=== PATIENT | female | born 2000 | race Caucasian/White ===

== ENCOUNTER 2024-04-28 09:28 | Outpatient (CLI) | payer OTHER, SELFPAY ==
[2024-04-28 09:56] VITALS: BP 127/58; PULSE 75
[2024-04-28 10:00] VITALS: BP 130/61; PULSE 79
--- OUTSIDE RECORDS SUMMARY | 2024-04-28 10:34 | XMS_ITS | Clinical Summary ---
Author Organization [facility] Address [address] [place] [address] Care Team Providers Care Boomboat Operator Name Role Phone Unavailable Primary Care Provider Unavailabl e Source Comments [facility],non-owned Affiliates and Associated Physician Practices is amultiple site organization consisting of ambulatory clinics and hospital sitesin [place], [place], [place] and [place]. This disclosure is being madepursuant to the Care Everywhere program and may not contain all information available regarding this patient. Last updated 17.[facility] [employer] Allergies Active Allergy Reactions Criticality Noted Date Comments Penicillins Urticaria Medium 02/24/2024 Medications * Be aware that medications may not be up to date on this document. Alwaysverify current medications with the patient. Medication Sig Dispensed Refills Start Date End Date Status Vit-DSS-Fe Fum-FA ( vitamin with iron) tabletIndications:P regnancy Take 1 (one) tablet by mouth once daily Reasons: Active doxylamine (Unisom) 25 MG tabletIndications:N ausea and/or Vomiting in Take 1 (one) tablet by mouth nightly as needed for Insomnia Reasons: Nausea and Vomiting in Active pyridoxine (Vitamin B-6) 25 MG tabletIndications:N ausea and/or Vomiting in Take 2 (two) tablets by mouth once daily Reasons: Nausea and Vomiting in Active Harriman-3 Fatty Acids (fish oil) 500 MG capsule Take 500 (five hundred) mg by mouth once daily Active promethazine (Phenergan) 25 MG tabletIndications:N ausea and Vomiting Take 1 (one) tablet by mouth every 6 hours as needed for Nausea/Vomiting Reasons: Nausea and Vomiting Active Blood Glucose Monitoring Suppl (OneTouch Verio) w/Device KITIndications:Hypo glycemia Use 1 Each as directed 1 kit 02/26/2024 Active Lancets (ONETOUCH DELICA PLUS 33G EXTRA FINE LANCET)Indications: Hypoglycemia Use 1 Each 4 times daily 150 Each 02/26/2024 Active blood glucose test stripIndications:Hy poglycemia Use 1 (one) strip 4 times daily 150 strip 02/26/2024 Active Alcohol Swabs (SM Alcohol Prep) Use 1 Each 4 times daily 150 Each 02/26/2024 Active aspirin (Aspirin) 81 MG chew tabletIndications:P reeclampsia Take 2 (two) tablets by mouth once daily Reasons: Increased Blood Pressure and Edema During 100 tablet 3 03/23/2024 Active labetalol (Normodyne; Trandate) 100 MG tabletIndications:G estational Hypertension Take 0.5 (one-half) tablet by mouth every 12 hours Reasons: -Induced Hypertension Active Active Problems Problem Noted Date Diagnosed Date Benign essential hypertension, antepartum 2024 Hx of preeclampsia, prior , currently p regnant 04/15/2024 Encounter for anatomic survey 04/15/2024 Estimated Date of Delivery Comme nts Yes 08/30/2024 Based on Ultraso und Encounters Date Type Department Care Team Description 04/15/2024 9:33 AM [facility] - 04/15/2024 11:59 PM [facility] Hospital Encounter [facility] [address] [place] [phone] Nnamdi Humphrey MD Discharge Disposition: Home or Self Care 03/04/2024 Telephone [facility] [address] [place] [phone] Asia Russo RN Update (Divine from [facility] called with update on patient's Cardiology recommendations. /) 02/26/2024 9:08 AM [facility] - 02/26/2024 11:59 PM [facility] Hospital Encounter [facility] [address] [place] [phone] Nnamdi Humphrey MD Discharge Disposition: Home or Self Care 02/26/2024 9:00 AM [facility] - 02/26/2024 9:07 AM [facility] Hospital Encounter [facility] [address] [place] [address] Nnamdi Humphrey MD Discharge Disposition: Home or Self Care 02/03/2024 Telephone [facility] [address] [place] [address] Marina Hamilton Appointment (LM for pt to C/S appt) from Last 3 Months Family History Relation Name Status Comments Brother 1 Alive Brother 2 Alive Father Alive Mother Alive Sister 1 Alive Sister 2 Alive Social History Tobacco Use Types Packs/Day Years Used Date Smoking Tobacco: Never Smokeless Tobacco: Never Tobacco Cessation:Counseling Given: Not Answered Alcohol Use Standard Drinks/Week Comments Not Currently 0 (1 standard drink = 0.6 oz pur e alcohol) Estimated Date of Delivery Comme nts Yes 08/30/2024 Based on Ultraso und Sex and Gender Information Value Date Recorded Sex Assigned at Not on file Gender Identity Not on file Sexual Orientation Not on file Last Filed Vital Signs Vital Sign Reading Time Taken Comments Blood Pressure 117/67 04/15/2024 10:41 AM [facility] Pulse 96 04/15/2024 10:41 AM [facility] Temperature - - Respiratory Rate - - Oxygen Saturation - - Inhaled Oxygen Concentration - - Weight 84.4 kg (186 lb) 04/15/2024 10:41 AM [facility] Height 160 cm (5' 3 ) 02/26/2024 9:45 AM [facility] Body Mass Index 32.95 02/26/2024 9:45 AM [facility] Plan of Treatment Upcoming Encounters Date Type Department Care Team (Late st Contact Info) Description 05/13/2024 9:45 AM CDT Appointment [facility] [address] [place] [address] Health Maintenance Due Date Last Done Comments PAP SMEAR 1998 HPV VACCINE (1 - 3-dose series) 2013 HEPATITIS C SCREENING 01/27/2016 DTAP/TDAP/TD VACCINES (1 - Tdap) 2017 HEPATITIS B VACCINE (1 of 3 - 19+ 3-dose series) 2017 COVID-19 VACCINE (2023-2 5 season) 2023 INFLUENZA VACCINE (#1) 2023 DEPRESSION SCREENING 02/12/2024 ZOSTER VACCINE (1 of 2) 02/01/2048 HIV SCREENING Completed 02/20/2024 HIB VACCINE Aged Out No longer eligi ble based on patient's age to complete this topic MENINGOCOCCAL (Group B) VACC INE SHARED DECISION-MAKING Aged Out No longer eligibl e based on patient's age to complete this topic MENINGOCOCCAL GROUPS A/C/Y/W VACCINE Aged Out No longer eligible b ased on patient's age to complete this topic PNEUMOCOCCAL VACCINE Aged Out No long er eligible based on patient's age to complete this topic Respiratory Syncytial Virus (RSV) Vaccine Pt: or over 60 yrs (No Doses Required) Completed Procedures Procedure Name Priority Date/Time Associated Diagnosis Comments SONOGRAM - COMPLETE Routine 04/15/2024 9 :34 AM [facility] Benign essential hypertension, antepartum (HCC) Hx of preeclampsia, prior , currently (HCC) Encounter for anatomic survey (HCC) 20 weeks gestation of (HCC) SONOGRAM - COMPLETE Routine 02/26/2024 9 :12 AM [facility] Encounter for anatomic survey (HCC) Benign essential hypertension, antepartum (HCC) Hx of preeclampsia, prior , currently (HCC) 13 weeks gestation of (HCC) from Last 3 Months Results * SONOGRAM - COMPLETE (04/15/2024 9:34 AM [facility]) Only the most recent of2 resultswithin the time period is included. Linked Results Indication ======== Anatomy Screen cHTN currently on no meds, Class II obesity History ====== OB History 2. Para 1 [id number] 1. live 2020. Gest. age 39 w + 5 d. Weight 2,771 g. Sex of child: female. Details: , Preeclampsia with HELLP Lab Tests Test Date Result NIPT Low risk, Female; per patient Maternal Assessment Physical Exam Height 157 cm, 5 ft 2 in. Weight 84 kg, 186 lb. Initial weight 88 kg, 193 lb. BMI 34.02 kg/m . Initial BMI 35.30 kg/m . Weight gain -3 kg, -7 lb Method ====== Transabdominal and transvaginal ultrasound. View: Sufficient ========= Foy . Number of fetuses: 1 Dating ====== Date Details Gest. age KELLE LMP 11/15/2023 21 w + 5 d 08/21/2024 Stated KELLE 20 w + 3 d 08/30/2024 U/S 04/15/2024 based upon AC, BPD, Femur, HC 20 w + 3 d 08/30/2024 Assigned dating based on stated KELLE, selected on 02/26/2024 20 w + 3 d 08/30/2024 General Evaluation Cardiac activity present. FHR 141 bpm. Presentation: cephalic Placenta: Placental site: posterior; no previa Umbilical cord: Cord vessels: 3 vessel cord. Insertion site: normal insertion Amniotic fluid: Amount of AF: normal. MVP 4.0 cm Biometry BPD 46.5 mm 20w 0d 34% Hadlock HC 176.2 mm 20w 1d 28% Hadlock Cerebellum tr 21.8 mm 81% [place] Nuchal fold 5.4 mm AC 158.5 mm 21w 0d 62% Hadlock Femur 34.1 mm 20w 5d 52% Hadlock Humerus 32.7 mm 21w 0d 72% Emma HC / AC 1.11 -/- 19% Hadlock Weight Calculation: EFW 375 g 62% Hadlock EFW (lb,oz) 0 lb 13 oz EFW by Hadlock ([id number]) appropriate Growth Overview Exam date GA BPD (mm) HC (mm) AC (mm) FL (mm) HL (mm) EFW (g) 04/15/2024 20w 3d 46.5 34% 176.2 28% 158.5 62% 34.1 52% 32.7 72% 375 62% Anatomy The following structures appear normal: Head / Neck Cranium. Lateral ventricles. Choroid plexus. Midline falx. Cerebellum. Cisterna magna. Thalami. Nuchal fold. Heart / Thorax 4-chamber view. RVOT view. LVOT view. Situs. Aortic arch view. Bicaval view. Ductal arch view. Interventricular septum. Great vessels. Right lung. Left lung. Diaphragm. Abdomen Cord insertion. Stomach. Kidneys. Bladder. Bowel. Genitals. Spine Cervical spine. Thoracic spine. Lumbar spine. Sacral spine. Extremities / Skeleton Arms. Hands. Legs. Feet. The following structures could not be adequately visualized: Head / Neck Cavum septi pellucidi. Face Lips. Profile. Nose. Orbits. Heart / Thorax 3-vessel view. 1-ekxzit-rjwzpyi view. Maternal Structures Cervix reassuring Approach - Transvaginal: Cervical length 3.00 cm Right Ovary Not visualized Left Ovary Not visualized Adnexa's appear normal; No previa Impression ========= Single live intrauterine at 20w 3d size & amniotic fluid volume are normal Transvaginal cervical length is normal 3 cm No malformations were seen within the limitations of ultrasound Follow-up ======== Follow up ultrasound in 4 weeks to complete anatomy screen Coding ====== Procedures [id number]: US Preg Uterus Detailed [id number]: US Preg Uterus Transvaginal [facility] [employer] PACS Anatomical Region Laterality Modality Other 04/15/2024 9:34 AM [facility] R Denis Bruce MD [employer] from Last 3 Months Raya Pritchard Personal/Family Self 2000
--- OUTSIDE RECORDS SUMMARY | 2024-04-28 10:34 | XMS_ITS | Clinical Summary ---
Author Organization [facility] Address [address] [place] [address] Phone Care Team Providers Care Salad Bar Clerk Name Role Phone Alexi Rodriguez MD Primary Care Provider [phone] Allergies Active Allergy Reactions Criticality Noted Date Comments Penicillin G Anaphylaxis 01/29/2024 Medications No known medications Encounters Date Type Department Care Team Description 01/29/2024 6:29 PM MUSIC MINISTRIES DIRECTOR - 01/29/2024 10:10 PM MUSIC MINISTRIES DIRECTOR Emergency [facility] Emergency [address] [place] [address] Veda Nielson APRN, EMISSIONS REPAIR TECHNICIAN Campbell, Tom Griggs MD Dizziness Discharge Disposition: Discharged to home or Selfcare 01/29/2024 Travel from Last 3 Months Social History Tobacco Use Types Packs/Day Years Used Date Smoking Tobacco: Never Assessed Estimated Date of Delivery Comme nts Yes 08/30/2024 Sex and Gender Information Value Date Recorded Sex Assigned at Not on file Legal Sex Female 6:21 PM MUSIC MINISTRIES DIRECTOR Gender Identity Not on file Sexual Orientation Not on file Last Filed Vital Signs Vital Sign Reading Time Taken Comments Blood Pressure 142/66 01/29/2024 10:03 PM MUSIC MINISTRIES DIRECTOR Pulse 81 01/29/2024 10:03 PM MUSIC MINISTRIES DIRECTOR Temperature 36.9 C (98.5 F) 01/29/2024 6:27 PM MUSIC MINISTRIES DIRECTOR Respiratory Rate 18 01/29/2024 10:03 PM MUSIC MINISTRIES DIRECTOR Oxygen Saturation 100% 01/29/2024 10:03 PM MUSIC MINISTRIES DIRECTOR Inhaled Oxygen Concentration - - Weight 85.7 kg (189 lb) 01/29/2024 6:25 PM MUSIC MINISTRIES DIRECTOR Height 160 cm (5' 3 ) 01/29/2024 6:25 PM MUSIC MINISTRIES DIRECTOR Body Mass Index 33.48 01/29/2024 6:25 PM MUSIC MINISTRIES DIRECTOR Plan of Treatment Health Maintenance Due Date Last Done Comments Hepatitis C Virus (HCV) Screening 1998 TdaP Immunization 1998 Human Papillomavirus (HPV) Immunization (1 - 3-dose series) 2013 Hepatitis B Immunization (1 of 3 - 19+ 3-dose series) 2017 Pap Smear 2019 Influenza Immunization (#1) 2023 SARS-COV-2 Immunization ( season) 2023 Meningococcal Immunization (ACWY) Aged Out No longer eligible based on patient's age to complete this topic Pneumococcal Immunization Combined Aged Out No longer eligible based on patient's age to complete this topic Respiratory Syncytial Virus (RSV) Immunization (Adult) (No Doses Required) Completed Rotavirus Immunization Aged Out No lo nger eligible based on patient's age to complete this topic Procedures Procedure Name Priority Date/Time Associated Diagnosis Comments URINALYSIS REFLEX IF INDICATED BY ABNORMAL RESULTS STAT 01/29/2024 8:42 PM MUSIC MINISTRIES DIRECTOR EKG 12 LEAD STAT 01/29/2024 7:54 PM MUSIC MINISTRIES DIRECTOR CBC WITH AUTO DIFFERENTIAL STAT 01/29/2024 7:36 PM MUSIC MINISTRIES DIRECTOR TROPONIN I, HIGH SENSITIVITY (HSTRP) STAT 01/29/2024 7:36 PM MUSIC MINISTRIES DIRECTOR CMP (COMPREHENSIVE METABOLIC PANEL) STAT 01/29/2024 7:36 PM MUSIC MINISTRIES DIRECTOR COMPLETE BLOOD COUNT (CBC) WITH DIFF STAT 01/29/2024 7:36 PM MUSIC MINISTRIES DIRECTOR XR CHEST SINGLE VIEW PORTABLE STAT 01/29/2024 7:55 AM MUSIC MINISTRIES DIRECTOR EKG SCAN 01/29/2024 12:00 AM MUSIC MINISTRIES DIRECTOR RHYTHM STRIP 01/29/2024 12:00 AM MUSIC MINISTRIES DIRECTOR RHYTHM STRIP 01/29/2024 12:00 AM MUSIC MINISTRIES DIRECTOR from Last 3 Months Results * (ABNORMAL) Urinalysis w/ Reflex (01/29/2024 8:42 PM MUSIC MINISTRIES DIRECTOR) SPECIFIC GRAVITY 1.010 1.003 - 1.030 01/29/2024 9:00 PM [facility] URINE PH 7.0 5.0 - 9.0 01/29/2024 9:00 PM [facility] WBC ESTERASE 25 /ul(A) Negative 01/29/2024 9:00 PM [facility] NITRITE Negative Negative 01/29/2024 9:00 PM [facility] PROTEIN, RANDOM URINE 15 mg/dL(A) Negative 01/29/2024 9:00 PM [facility] URINE GLUCOSE, QUAL Negative Negative 01/29/2024 9:00 PM [facility] URINE KETONES Negative Negative 01/29/2024 9:00 PM [facility] UROBILINOGEN Normal Normal mg/dL 01/29/2024 9:00 PM [facility] URINE BLOOD Negative Negative mirella/ul 01/29/2024 9:00 PM [facility] URINALYSIS COLOR Yellow 01/29/20 9:00 PM [facility] URINALYSIS CLARITY Slightly Cloudy 01/29/2024 9:00 PM [facility] WBC (Urine) 0-5 Negative, 0-5 /hpf 01/29/2024 9:00 PM [facility] URINE RBC'S 0-2 Negative, 0-2 /hpf 01/29/2024 9:00 PM [facility] EPITHELIAL CELLS Small amount /lpf 2023 9:00 PM [facility] BACTERIA, URINE Few(A) Negative /hpf 01/29/2024 9:00 PM [facility] Urine URINE SPECIMEN / Unknown Non-Phlebotomy Collection / Unknown 01/29/2024 8:42 PM MUSIC MINISTRIES DIRECTOR 01/29/2024 8:45 PM MUSIC MINISTRIES DIRECTOR us Tom Hightower MD URINE ORDERABLES Fin al Result [facility] [address] [place] [address] * EKG 12 LEAD (01/29/2024 7:54 PM MUSIC MINISTRIES DIRECTOR) Ventricular Rate 68 BPM EXTERNAL EKG Atrial Rate 68 BPM EXTERNAL EKG P-R Interval 176 ms EXTERNAL EKG QRS Duration 68 ms EXTERNAL EKG Q-T Duration 378 ms EXTERNAL EKG QTC CALCULATION 401 ms EXTERNAL EKG P [employer] 14 degrees EXTERNAL EKG R [employer] 35 degrees EXTERNAL EKG T [employer] 48 degrees EXTERNAL EKG 01/29/2024 7:54 PM MUSIC MINISTRIES DIRECTOR Impressions EXTERNAL EKG - 02/03/2024 3:59 PM MUSIC MINISTRIES DIRECTOR Sinus rhythm with marked sinus arrhythmia Septal infarct , age undetermined Abnormal ECG No previous ECGs available Confirmed by Akash Toscano ([id number]) on 02/03/2024 3:59:00 PM Narrative Procedure Note Akash Toscano MD - 02/03/2024 IMPRESSION: Sinus rhythm with marked sinus arrhythmia Septal infarct , age undetermined Abnormal ECG No previous ECGs available Confirmed by Akash Toscano ([id number]) on 02/03/2024 3:59:00 PM Tom Hightower MD IMG ECG ORDERABLES F inal Result Performing Organization Address City[facility] Co de Phone Number EXTERNAL EKG * TROPONIN I, HIGH SENSITIVITY (HSTRP) (01/29/2024 7:36 PM MUSIC MINISTRIES DIRECTOR) TROPONIN I, HIGH SENSITIVITY- JEAN <3 <=14 ng/L 01/29/2024 8:09 PM MUSIC MINISTRIES DIRECTOR [facility] Comment: High-sensitivity troponin I results are reported in ng/L making the result appear to be 1,000 times higher than the contemporary troponin I value which is reported in ng/ml. Results from Jean. Blood Venipuncture / Unknown 01/29/2024 7:36 PM MUSIC MINISTRIES DIRECTOR 01/29/2024 7:44 PM MUSIC MINISTRIES DIRECTOR us Tom Hightower MD CHEMISTRY ORDERABLES Final Result [facility] [address] [place] [address] * (ABNORMAL) CBC with Auto Differential (01/29/2024 7:36 PM MUSIC MINISTRIES DIRECTOR) WBC 12.98(H) 4.00 - 12.00 10(3)/mcL 01/29/2024 7:46 PM MUSIC MINISTRIES DIRECTOR [facility] RBC 4.04 3.80 - 5.30 10(6)/mcL 01/29/2024 7:46 PM MUSIC MINISTRIES DIRECTOR [facility] HEMOGLOBIN (HGB) 13.1 12.0 - 15.8 g/dL 01/29/2024 7:46 PM MUSIC MINISTRIES DIRECTOR [facility] HEMATOCRIT (HCT) 36.9 36.0 - 47.0 % 01/29/2024 7:46 PM MUSIC MINISTRIES DIRECTOR [facility] MCV 91.3 82.0 - 96.0 fL 01/29/2024 7:46 PM MUSIC MINISTRIES DIRECTOR [facility] MCH 32.4 26.0 - 34.0 pg 01/29/2024 7:46 PM MUSIC MINISTRIES DIRECTOR [facility] MCHC 35.5 31.0 - 36.0 g/dL 01/29/2024 7:46 PM MUSIC MINISTRIES DIRECTOR [facility] PLATELET COUNT 326 140 - 440 10(3)/mcL 01/29/2024 7:46 PM MUSIC MINISTRIES DIRECTOR [facility] RDW 12.1 11.8 - 15.5 % 01/29/2024 7:46 PM MUSIC MINISTRIES DIRECTOR [facility] MPV 9.4(L) 9.7 - 12.4 fL 01/29/2024 7:46 PM MUSIC MINISTRIES DIRECTOR [facility] NEUTROPHILS 74.3(H) 47.0 - 73.0 % 01/29/2024 7:46 PM MUSIC MINISTRIES DIRECTOR [facility] LYMPHOCYTES 18.2 18.0 - 42.0 % 01/29/2024 7:46 PM MUSIC MINISTRIES DIRECTOR [facility] MONOCYTES 6.9 4.0 - 12.0 % 01/29/2024 7:46 PM MUSIC MINISTRIES DIRECTOR [facility] EOSINOPHILS 0.2 0.0 - 5.0 % 01/29/2024 7:46 PM MUSIC MINISTRIES DIRECTOR [facility] BASOPHILS 0.4 0.0 - 1.0 % 01/29/2024 7:46 PM MUSIC MINISTRIES DIRECTOR [facility] ABSOLUTE NEUTROPHILS 9.64(H) 1.60 - 7.70 10(3)/[facility] 01/29/2024 7:46 PM MUSIC MINISTRIES DIRECTOR [facility] ABSOLUTE LYMPHOCYTES 2.36 1.30 - 3.20 10(3)/[facility] 01/29/2024 7:46 PM MUSIC MINISTRIES DIRECTOR [facility] ABSOLUTE MONOCYTES 0.90 0.20 - 1.00 10(3)/[facility] 01/29/2024 7:46 PM [facility] ABSOLUTE EOSINOPHIL 0.03 0.00 - 0.40 10(3)/[facility] 01/29/2024 7:46 PM [facility] ABSOLUTE BASOPHILS 0.05 0.00 - 0.10 10(3)/[facility] 01/29/2024 7:46 PM [facility] NRBC PER 100 WBC 0 01/29/20 7:46 PM [facility] Blood Venipuncture / Unknown 01/29/2024 7:36 PM MUSIC MINISTRIES DIRECTOR 01/29/2024 7:44 PM MUSIC MINISTRIES DIRECTOR us Tom Hightower MD HEMATOLOGY ORDERABLE S Final Result [facility] [address] [place] [address] * (ABNORMAL) CMP (01/29/2024 7:36 PM MUSIC MINISTRIES DIRECTOR) SODIUM 139 136 - 145 mmol/L 01/29/2024 8:05 PM MUSIC MINISTRIES DIRECTOR [facility] POTASSIUM 3.8 3.5 - 5.1 mmol/L 01/29/2024 8:05 PM [facility] CHLORIDE 109(H) 98 - 107 mmol/L 01/29/2024 8:05 PM [facility] CO2, VENOUS 22 22 - 30 mmol/L 01/29/2024 8:05 PM [facility] ANION GAP 11.8 <18.0 mmol/L 01/29/2024 8:05 PM [facility] GLUCOSE 84 70 - 99 mg/dL 01/29/2024 8:05 PM [facility] BUN 8 5 - 18 mg/dL 01/29/2024 8:05 PM [facility] CREATININE, BLOOD 0.73 0.60 - 1.00 mg/dL 01/29/2024 8:05 PM [facility] BUN/CREATININE RATIO 11(L) 12 - 20 ratio 01/29/2024 8:05 PM [facility] TOTAL PROTEIN 6.7 6.3 - 8.2 g/dL 01/29/2024 8:05 PM [facility] ALBUMIN 4.2 3.5 - 5.0 g/dL 01/29/2024 8:05 PM [facility] A/G RATIO 1.7 1.0 - 2.2 01/29/2024 8:05 PM [facility] CALCIUM 9.8 8.7 - 10.5 mg/dL 01/29/2024 8:05 PM [facility] T BILI 0.5 0.2 - 1.2 mg/dL 01/29/2024 8:05 PM [facility] SGOT (AST) 14 5 - 34 U/L 01/29/2024 8:05 PM [facility] SGPT (ALT) 17 0 - 55 U/L 01/29/2024 8:05 PM [facility] ALKALINE PHOSPHATASE 46 40 - 150 U/L 01/29/2024 8:05 PM [facility] GFR, ESTIMATED >60 >=60 01/29/2024 8:05 PM MUSIC MINISTRIES DIRECTOR [facility] Comment: Creatinine Clearance is the preferred criteria for selecting drug dose adjustments in renally impaired patients. The GFR is provided as additional pertinent clinical information. GFR is reported in mL/min/1.73 sq m. Calculation based on the Chronic Kidney Disease Epidemiology Collaboration (CKD- EPI) equation refit without adjustment for race. GFR, EST. >60 >=60 024 8:05 PM MUSIC MINISTRIES DIRECTOR [facility] GFR, EST. NONAFRICAN >60 >=60 01/29/2024 8:05 PM MUSIC MINISTRIES DIRECTOR [facility] Blood Venipuncture / Unknown 01/29/2024 7:36 PM MUSIC MINISTRIES DIRECTOR 01/29/2024 7:44 PM MUSIC MINISTRIES DIRECTOR us Tom Hightower MD CHEMISTRY ORDERABLES Final Result [facility] [address] [place] [address] * XR CHEST SINGLE VIEW PORTABLE (01/29/2024 7:55 AM MUSIC MINISTRIES DIRECTOR) Anatomical Region Laterality Modality Chest N/A Computed Radiogr aphy 01/29/2024 8:3 3 PM MUSIC MINISTRIES DIRECTOR Impressions 01/29/2024 8:35 PM MUSIC MINISTRIES DIRECTOR IMPRESSION: No acute cardiopulmonary abnormality. Narrative 01/29/2024 8:35 PM MUSIC MINISTRIES DIRECTOR EXAM DESCRIPTION: XR CHEST SINGLE VIEW PORTABLE REASON FOR STUDY: sternal chest pain, shortness of breath with nausea, dizziness, headache x 2- 3 weeks worse today- HX HTN, abnormal EKGS x 3 years- Currently 10 weeks TECHNIQUE: Frontal radiographic view(s) of the chest. COMPARISON: None available FINDINGS: LUNGS: Mild bibasilar atelectasis. The lungs are otherwise clear. No focal pulmonary parenchymal consolidation, pleural effusion, or pneumothorax. HEART/MEDIASTINUM: Cardiac silhouette is at the upper limits of normal in size. Mediastinal and hilar contours appear normal. LINES/TUBES: None. BONES: No acute osseous abnormality. THIS IS AN ELECTRONICALLY VERIFIED FINAL REPORT 01/29/2024 8:33 PM - Electronically signed by Sarah Forrest M.D. AT: AT Report ID: [id number] Reading Location: [id number] Procedure Note Sarah Forrest MD - 01/29/2024 EXAM DESCRIPTION: XR CHEST SINGLE VIEW PORTABLE REASON FOR STUDY: sternal chest pain, shortness of breath with nausea, dizziness, headache x 2- 3 weeks worse today- HX HTN, abnormal EKGS x 3 years- Currently 10 weeks TECHNIQUE: Frontal radiographic view(s) of the chest. COMPARISON: None available FINDINGS: LUNGS: Mild bibasilar atelectasis. The lungs are otherwise clear. No focal pulmonary parenchymal consolidation, pleural effusion, or pneumothorax. HEART/MEDIASTINUM: Cardiac silhouette is at the upper limits of normal in size. Mediastinal and hilar contours appear normal. LINES/TUBES: None. BONES: No acute osseous abnormality. THIS IS AN ELECTRONICALLY VERIFIED FINAL REPORT 01/29/2024 8:33 PM - Electronically signed by Sarah Forrest M.D. AT: AT Report ID: [id number] Reading Location: [id number] IMPRESSION: No acute cardiopulmonary abnormality. Tom Hightower MD IMG DIAGNOSTIC ORDER AIYANA Final Result * RHYTHM STRIP (01/29/2024 12:00 AM MUSIC MINISTRIES DIRECTOR) Only the most recent of2 resultswithin the time period is included. 01/29/2024 us Provider Scan IMG ECG ORDERABLES Final Result RESULTING AGENCY * EKG SCAN (01/29/2024 12:00 AM MUSIC MINISTRIES DIRECTOR) 01/29/2024 us Provider Scan IMG ECG ORDERABLES Final Result RESULTING AGENCY from Last 3 Months Insurance MEDICAID [place] Care Teams Salad Bar Clerk Relationship Specialty Start Date End Date Alexi Rodriguez MD [address] [place] [phone] PCP - General Family Medicine 01/29/24
== END 2024-04-28 10:15 | disposition home or self-care (01) ==
LOC: ANHOBOP 09:40 → ANHOBPP 09:43
PROVIDERS: Visit Provider Obstetrics & Gynecology
DX: Z39.1 Encounter for care and examination of lactating mother (principal)
CPT/HCPCS: 99199

== ENCOUNTER 2024-05-12 09:23 | Outpatient (CLI) | payer OTHER, SELFPAY ==
--- NOTE | ~2024-05-12 | US_ITS ---
EXAMINATION: US venous doppler [facility] DATE: 05/12/2024 10:18 INDICATION: Bilateral lower limb swelling TECHNIQUE: Grayscale ultrasound images without and with compression and Doppler ultrasound images of the bilateral lower extremity veins were obtained. COMPARISON: None. FINDINGS: The visualized portions of right common femoral vein, profunda (deep) femoral vein, femoral vein, pop liteal vein, posterior tibial veins, peroneal veins, gastrocnemius vein and greater saphenous vein ou tflow are patent. The visualized portions of left common femoral vein, profunda femoral vein, femoral vein, popliteal v ein, posterior tibial veins, peroneal veins, gastrocnemius vein and greater saphenous vein outflow ar e patent. IMPRESSION: 1. No deep venous thrombosis in either lower limb. Reviewed, dictated and finalized at location A.
--- OUTSIDE RECORDS SUMMARY | 2024-05-12 10:00 | XMS_ITS | Clinical Summary ---
Author Organization [facility] Address [address] [place] [address] Phone Care Team Providers Care Dump Grader Name Role Phone Alexi Rodriguez MD Primary Care Provider [phone] Allergies Active Allergy Reactions Criticality Noted Date Comments Penicillin G Anaphylaxis 01/29/2024 Medications No known medications Social History Tobacco Use Types Packs/Day Years Used Date Smoking Tobacco: Never Assessed Estimated Date of Delivery Comme nts Yes 08/30/2024 Sex and Gender Information Value Date Recorded Sex Assigned at Not on file Legal Sex Female 6:21 PM INSTRUMENT PANEL ASSEMBLER Gender Identity Not on file Sexual Orientation Not on file Last Filed Vital Signs Vital Sign Reading Time Taken Comments Blood Pressure 142/66 01/29/2024 10:03 PM INSTRUMENT PANEL ASSEMBLER Pulse 81 01/29/2024 10:03 PM INSTRUMENT PANEL ASSEMBLER Temperature 36.9 C (98.5 F) 01/29/2024 6:27 PM INSTRUMENT PANEL ASSEMBLER Respiratory Rate 18 01/29/2024 10:03 PM INSTRUMENT PANEL ASSEMBLER Oxygen Saturation 100% 01/29/2024 10:03 PM INSTRUMENT PANEL ASSEMBLER Inhaled Oxygen Concentration - - Weight 85.7 kg (189 lb) 01/29/2024 6:25 PM INSTRUMENT PANEL ASSEMBLER Height 160 cm (5' 3 ) 01/29/2024 6:25 PM INSTRUMENT PANEL ASSEMBLER Body Mass Index 33.48 01/29/2024 6:25 PM INSTRUMENT PANEL ASSEMBLER Plan of Treatment Health Maintenance Due Date [...] on patient's age to complete this topic Insurance MEDICAID [place] Care Teams Dump Grader Relationship Specialty Start Date End Date Alexi Rodriguez MD [address] [place] [phone] PCP - General Family Medicine 01/29/24
--- OUTSIDE RECORDS SUMMARY | 2024-05-12 10:00 | XMS_ITS | Clinical Summary ---
Author Organization [facility] Address [address] [place] [address] Care Team Providers Care Appliance Repairer Name Role Phone Unavailable Primary Care Provider Unavailabl e Source Comments [facility],non-owned Affiliates and Associated Physician Practices is amultiple site organization consisting of ambulatory clinics and hospital sitesin [place], [place], [place] and [place]. This disclosure is being madepursuant to the Care Everywhere program and may not contain all information available regarding this patient. Last updated 17.[facility] [employer] Allergies Active Allergy Reactions Criticality Noted Date [...] daily Reasons: Nausea and Vomiting in Active Regan-3 Fatty Acids (fish oil) 500 MG capsule [...] Department Care Team Description 04/15/2024 9:33 AM WINDOW SHADE ESTIMATOR - 04/15/2024 11:59 PM [facility] Hospital Encounter [facility] [address] [place] [phone] Nnamdi Humphrey MD Discharge Disposition: Home or Self Care 03/04/2024 Telephone [facility] [address] [place] [phone] Asia Russo RN Update (Divine from [facility] called with update on patient's Cardiology recommendations. /) 02/26/2024 9:08 AM WINDOW SHADE ESTIMATOR - 02/26/2024 11:59 PM [facility] Hospital Encounter [facility] [address] [place] [id number] Nnamdi Humphrey MD Discharge Disposition: Home or Self Care 02/26/2024 9:00 AM WINDOW SHADE ESTIMATOR - 02/26/2024 9:07 AM WINDOW SHADE ESTIMATOR Hospital Encounter [facility] [address] [place] [id number] Nnamdi Humphrey MD Discharge Disposition: Home or Self Care from Last 3 Months Family History Relation [...] Comments Blood Pressure 117/67 04/15/2024 10:41 AM WINDOW SHADE ESTIMATOR Pulse 96 04/15/2024 10:41 AM WINDOW SHADE ESTIMATOR Temperature - - Respiratory Rate - - Oxygen Saturation - - Inhaled Oxygen Concentration - - Weight 84.4 kg (186 lb) 04/15/2024 10:41 AM WINDOW SHADE ESTIMATOR Height 160 cm (5' 3 ) 02/26/2024 9:45 AM WINDOW SHADE ESTIMATOR Body Mass Index 32.95 02/26/2024 9:45 AM WINDOW SHADE ESTIMATOR Plan of Treatment Upcoming Encounters Date Type Department Care Team (Late st Contact Info) Description 05/13/2024 9:45 AM CDT Hospital Encounter [facility] [address] [place] [id number] Nnamdi Humphrey MD [address] [address] Health Maintenance Due Date Last Done Comments PAP SMEAR 1998 HPV VACCINE (1 - 3-dose series) 2013 HEPATITIS C SCREENING 01/27/2016 DTAP/TDAP/TD VACCINES (1 - Tdap) 2017 HEPATITIS B VACCINE (1 of 3 - 19+ 3-dose series) 2017 COVID-19 VACCINE (2023-2 5 season) 2023 INFLUENZA VACCINE (#1) 2023 DEPRESSION SCREENING 02/12/2024 OB-ONE HOUR GLUCOSE 05/24/2024 OB-RHOGAM INJECTION 06/07/2024 ZOSTER VACCINE (1 of 2) 02/01/2048 HIV [...] - COMPLETE Routine 04/15/2024 9 :34 AM WINDOW SHADE ESTIMATOR Benign essential hypertension, antepartum Hx of preeclampsia, prior , currently Encounter for anatomic survey 20 weeks gestation of SONOGRAM - COMPLETE Routine 02/26/2024 9 :12 AM WINDOW SHADE ESTIMATOR Encounter for anatomic survey Benign essential hypertension, antepartum Hx of preeclampsia, prior , currently 13 weeks gestation of from Last 3 Months Results * SONOGRAM - COMPLETE (04/15/2024 9:34 AM WINDOW SHADE ESTIMATOR) Only the most recent of2 resultswithin the time period is included. Linked Results Indication ======== Anatomy Screen cHTN currently on no meds, Class II obesity History ====== OB History 2. Para 1 [id number] 1. live 2020. Gest. age 39 w [...] 0 lb 13 oz EFW by Hadlock ([id number]) appropriate Growth Overview Exam date [place] BPD [...] Nose. Orbits. Heart / Thorax 3-vessel view. 3-eohlmo-nnurdib view. Maternal Structures Cervix reassuring Approach - [...] to complete anatomy screen Coding ====== Procedures [id number]: US Preg Uterus Detailed [id number]: US Preg Uterus Transvaginal [employer] PACS Anatomical Region Laterality Modality Other 04/15/2024 9:34 AM WINDOW SHADE ESTIMATOR R Denis Bruce MD [facility] ORDERABLES from Last 3 Months Raya Pritchard Personal/Family Self 2000
== END 2024-05-12 09:24 | disposition home or self-care (01) ==
PROVIDERS: Visit Provider Obstetrics & Gynecology
DX: M79.89 Other specified soft tissue disorders (principal)
CPT/HCPCS: 93970

== ENCOUNTER 2024-07-02 19:33 | Outpatient (CLI) | payer OTHER, SELFPAY ==
[2024-07-02] VITALS (15 sets, daily range): BP systolic 114–115; BP diastolic 55–56; PULSE 67–102; TEMP 36.6; O2SAT 99–100; BMI 34.0
--- NOTE | 2024-07-02 19:33 | PC.NURSE ---
Pt arrives to unit with contractions, dizzy, headache, blurry vision, and elevated blood pressure at home.
--- OUTSIDE RECORDS SUMMARY | 2024-07-02 19:38 | XMS_ITS | Clinical Summary ---
Author Organization [facility] Address [facility] [facility] [place] [address] Care Team Providers Care Cargo Router Name Role Phone Unavailable Primary Care Provider Unavailabl e Source Comments [facility],non-owned Affiliates and Associated Physician Practices is amultiple site organization consisting of ambulatory clinics and hospital sitesin [place], [place], [place] and [place]. This disclosure is being madepursuant to the Care Everywhere program and may not contain all information available regarding this patient. Last updated 17.[facility] [employer] Allergies Active Allergy Reactions Criticality Noted Date Comments Penicillins Urticaria Medium 02/24/2024 Medications * Be aware that medications may not be up to date on this document. Alwaysverify current medications with the patient. Vit-DSS-Fe Fum-FA ( vitamin with iron) tabletIndication s: Take 1 (one) tablet by mouth once daily Reasons: Active doxylamine (Unisom) 25 MG tabletIndication s:Nausea and/or Vomiting in Take 1 (one) tablet by mouth nightly as needed for Insomnia Reasons: Nausea and Vomiting in Active pyridoxine (Vitamin B-6) 25 MG tabletIndication s:Nausea and/or Vomiting in Take 2 (two) tablets by mouth once daily Reasons: Nausea and Vomiting in Active Alexis-3 Fatty Acids (fish oil) 500 MG capsule Take 500 (five hundred) mg by mouth once daily Active promethazine (Phenergan) 25 MG tabletIndication s:Nausea and Vomiting Take 1 (one) tablet by mouth every 6 hours as needed for Nausea/Vomiting Reasons: Nausea and Vomiting Active Blood Glucose Monitoring Suppl (OneTouch Verio) w/Device KITIndications:H ypoglycemia Use 1 Each as directed 1 kit 5 Active Lancets (ONETOUCH DELICA PLUS 33G EXTRA FINE LANCET)Indicatio ns:Hypoglycemia Use 1 Each 4 times daily 150 Each 5 Active blood glucose test stripIndications :Hypoglycemia Use 1 (one) strip 4 times daily 150 strip 5 Active Alcohol Swabs (SM Alcohol Prep) Use 1 Each 4 times daily 150 Each 5 Active aspirin (Aspirin) 81 MG chew tabletIndication s:Preeclampsia Take 2 (two) tablets by mouth once daily Reasons: Increased Blood Pressure and Edema During 100 tablet 3 5 Active labetalol (Normodyne; Trandate) 100 MG tabletIndication s:Gestational Hypertension Take 0.5 (one-half) tablet by mouth every 12 hours Reasons: -Induce d Hypertension Active Magnesium Glycinate 100 MG CAPSIndications: leg cramps Take 2 tablets by mouth at bedtime Reasons: leg cramps Active famotidine (Pepcid) 20 MG tabletIndication s:Heartburn Take 1 (one) tablet by mouth once daily Reasons: Heartburn Active ursodiol (Actigall) 300 MG capsule Take 1 (one) capsule by mouth 2 times daily Active Active Problems Problem Noted Date Diagnosed Date Benign essential hypertension, antepartum 2024 Hx of preeclampsia, prior , currently p regnant 04/15/2024 Encounter for anatomic survey 04/15/2024 Estimated Date of Delivery Comme nts Yes 08/30/2024 Based on Ultraso und Encounters Date Type Department Care Team Description 06/17/2024 10:30 AM CDT - 06/17/2024 11:59 PM CDT Hospital Encounter [facility] [address] [place] [id number] Nnamdi Humphrey MD Discharge Disposition: Home or Self Care 05/13/2024 9:45 AM CDT - 05/13/2024 11:59 PM CDT Hospital Encounter [facility] [address] [place] [address] Nnamdi Humphrey MD Discharge Disposition: Home or Self Care 04/15/2024 9:[address] STENOGRAPHER - 04/15/2024 11:[address] STENOGRAPHER Hospital Encounter [facility] [address] [place] [address] Nnamdi Humphrey MD Discharge Disposition: Home or [...] at Not on file Legal Sex Female 1:[address] STENOGRAPHER Gender Identity Not on file Sexual Orientation Not on file Last Filed Vital Signs Vital Sign Reading Time Taken Comments Blood Pressure 136/65 06/17/2024 11:06 AM CDT Pulse 93 06/17/2024 11:06 AM CDT Temperature - - Respiratory Rate - - Oxygen Saturation - - Inhaled Oxygen Concentration - - Weight 84.5 kg (186 lb 3.2 oz) 06/17/2024 11:06 AM CDT Height 157.5 cm (5' 2 ) 05/13/2024 11:05 AM CDT Body Mass Index 34.06 05/13/2024 11:05 AM CDT Plan of Treatment Upcoming Encounters Date Type Department Care Team (Late st Contact Info) Description 07/08/2024 10:30 AM CDT Hospital Encounter [facility] [address] [place] [address] Health Maintenance Due Date Last Done Comments PAP SMEAR 1998 HPV VACCINE (1 - 3-dose series) 2013 HEPATITIS C SCREENING 01/27/2016 DTAP/TDAP/TD VACCINES (1 - Tdap) 2017 HEPATITIS B VACCINE (1 of 3 - 19+ 3-dose series) 2017 COVID-19 VACCINE (2023-2 5 season) 2023 DEPRESSION SCREENING 02/12/2024 OB-ONE HOUR GLUCOSE 05/24/2024 OB-TDAP CURRENT 05/31/2024 OB-RHOGAM INJECTION 06/07/2024 INFLUENZA VACCINE (Season Ended) 2024 ZOSTER VACCINE (1 of 2) 02/01/2048 HIV SCREENING Completed 06/04/2024, 02/20/2024 HIB VACCINE Aged Out No longer eligi ble based on patient's age to complete this topic MENINGOCOCCAL (Group B) VACCINE SHARED DECISION-MAKING Aged Out No longer eligible based on [...] Associated Diagnosis Comments SONOGRAM - COMPLETE Routine 06/17/2024 1 1:38 AM CDT Benign essential hypertension, antepartum (HCC) Hx of preeclampsia, prior , currently (HCC) Encounter for ultrasound to assess growth (HCC) 29 weeks gestation of ([facility]) SONOGRAM - COMPLETE Routine 05/13/2024 9 :53 AM CDT Benign essential hypertension, antepartum (HCC) Hx of preeclampsia, prior , currently (HCC) Encounter for anatomic survey (HCC) 20 weeks gestation of ([facility]) SONOGRAM - COMPLETE Routine 04/15/2024 9 :[address] STENOGRAPHER Benign essential hypertension, antepartum Hx of preeclampsia, prior , currently Encounter for anatomic survey 20 weeks gestation of from Last 3 Months Results * SONOGRAM - COMPLETE (06/17/2024 11:38 AM CDT) Only the most recent of3 resultswithin the time period is included. Linked Results Indication ======== cHTN currently on no meds, Class II obesity History ====== OB History 2. Para 1 [id number] 1. live 2020. Gest. age 39 w [...] -3 kg, -7 lb Method ====== Transabdominal ultrasound. View: Good view ========= Foy . Number of fetuses: 1 Dating ====== Date Details Gest. age KELLE Stated KELLE 29 w + 3 d 08/30/2024 U/S 06/17/2024 based upon AC, BPD, Femur, HC 30 w + 2 d 08/24/2024 Assigned dating based on stated KELLE, selected on 02/26/2024 29 w + 3 d 08/30/2024 General Evaluation Cardiac activity present. FHR 150 bpm. Presentation: cephalic Placenta: Placental site: posterior Umbilical cord: Cord vessels: 3 vessel cord - previously documented. Insertion site: normal insertion Amniotic fluid: Amount of AF: normal. MVP 4.8 cm. MAKI 12.1 cm. Q1 4.8 cm, Q2 1.3 cm, Q3 3.0 cm, Q4 3.0 cm Biometry BPD 78.1 mm 31w 2d 90% Hadlock HC 277.5 mm 30w 2d 43% Hadlock AC 262.8 mm 30w 3d 74% Hadlock Femur 55.3 mm 29w 1d 27% Hadlock Humerus 49.2 mm 29w 0d 31% Emma HC / AC 1.06 -/- Hadlock Weight Calculation: EFW 1,506 g 60% Hadlock EFW (lb,oz) 3 lb 5 oz EFW by Hadlock ([id number]) appropriate Growth Overview Exam date GA BPD (mm) HC (mm) AC (mm) FL (mm) HL (mm) EFW (g) 04/15/2024 20w 3d 46.5 34% 176.2 28% 158.5 62% 34.1 52% 32.7 72% 375 62% 05/13/2024 24w 3d 62.3 73% 223.1 27% 205.9 65% 44.5 44% 42 68% 749 62% 06/17/2024 29w 3d 78.1 90% 277.5 43% 262.8 74% 55.3 27% 49.2 31% 1506 60% Anatomy The following structures appear normal: Heart / Thorax 4-chamber view. Abdomen Stomach. Kidneys. Bladder. Impression ========= Single, live, intrauterine at 29w 3d The size & amniotic fluid volume are normal No malformations were seen within the limitations of ultrasound Follow-up ======== Start weekly NST+BPP at 32 weeks Follow-up U/S for growth at 33 weeks Coding ====== Procedures 18065: US Preg Uterus Follow Up [place] PACS Anatomical Region Laterality Modality Other 06/17/2024 11:3 8 AM CDT [facility] Denis Bruce MD [facility] ORDERABLES Edited Result - Final from Last 3 Months Insurance [facility]
--- OUTSIDE RECORDS SUMMARY | 2024-07-02 19:38 | XMS_ITS | Clinical Summary ---
Author Organization [facility] Address [address] [place] [address] Phone Care Team Providers Care Drum Filler Name Role Phone Alexi Rodriguez MD Primary Care Provider [phone] Allergies Active Allergy Reactions Criticality Noted Date Comments Penicillin G Anaphylaxis 01/29/2024 Medications No known medications Social History Tobacco Use Types Packs/Day Years Used Date Smoking Tobacco: Never Assessed Estimated Date of Delivery Comme nts Yes 08/30/2024 Sex and Gender Information Value Date Recorded Sex Assigned at Not on file Legal Sex Female 6:21 PM [employer] Gender Identity Not on file Sexual Orientation Not on file Last Filed Vital Signs Vital Sign Reading Time Taken Comments Blood Pressure 142/66 01/29/2024 10:03 PM [employer] Pulse 81 01/29/2024 10:03 PM [employer] Temperature 36.9 C (98.5 F) 01/29/2024 6:27 PM [employer] Respiratory Rate 18 01/29/2024 10:03 PM [employer] Oxygen Saturation 100% 01/29/2024 10:03 PM [employer] Inhaled Oxygen Concentration - - Weight 85.7 kg (189 lb) 01/29/2024 6:25 PM [employer] Height 160 cm (5' 3 ) 01/29/2024 6:25 PM [employer] Body Mass Index 33.48 01/29/2024 6:25 PM [employer] Plan of Treatment Health Maintenance Due Date [...] age to complete this topic Insurance MEDICAID [place] Care Teams Drum Filler Relationship Specialty Start Date End Date Alexi Rodriguez MD [address] [place] [id number] PCP - General Family Medicine 01/29/24
[2024-07-02 20:07] LABS: Basophils Percent Auto 0.3 % (0.2-1.2); Eosinophils Percent Auto 0.3 % (0-4.4); Hematocrit 37.4 % (37.0-47.0); Hemoglobin 12.6 g/dL (12.0-15.0); Immature Granulocyte Absolute 0.04 K/mm3 (0.00-0.031); Immature Granulocyte Percent A 0.4 % (0-0.5); Lymphocytes Absolute Auto 1.58 K/mm3 (0.9-3.2); Lymphocytes Percent Auto 16.8 % (18.3-44.2); Mean Corpuscular HGB Conc 33.7 g/dl (32-36); Mean Corpuscular Hemoglobin 31.6 pg (26-34); Mean Corpuscular Volume 93.7 fl (80-100); Mean Platelet Volume 9.1 fl (7.4-10.4); Monocytes Absolute Auto 0.7 K/mm3 (0.1-0.6); Monocytes Percent Auto 7.3 % (2.6-8.5); Neutrophils Percent Auto 74.9 % (45.5-73.1); Platelet Count Result 303 k/mm3 (150-375); Red Blood Count 3.99 M/mm3 (4.2-5.4); Red Cell Distribution Width 13.5 % (11.5-14.5); White Blood Count 9.4 K/mm3 (4.5-10.0)
[2024-07-02 20:16] LABS: Add Urine Microscopic? YES; Appearance Urine Cloudy (Clear); Bacteria Urine 4+ /hpf; Bilirubin Urine Negative (Negative); Blood Urine Negative (Negative); Calcium Oxalate Crystals Urine Present /hpf; Color Urine Yellow (Yellow); Glucose Urine UA Negative (Negative); Ketones Urine Trace mg/dL (Negative); Leukocyte Esterase Ur 2+ LEU/UL (Negative); Need Manual Microscopic Reviewed; Nitrate Urine Negative (Negative); Protein Urine Negative (Negative); Specific Grav Ur 1.022 (1.001-1.035); Squamous Epithelial Cell Urine Moderate /hpf (Few); WBC Urine 51-100 /hpf (0-3)
[2024-07-02 20:19] LABS: Alanine Aminotransferase 17 U/L (6-35); Albumin Level 3.6 g/dL (3.5-5.1); Alkaline Phosphatase 91 U/L (38-126); Anion Gap 8 mmol/L (4-12); Aspartate Amino Transferase 21 U/L (14-36); Bilirubin,Total 0.5 mg/dL (0.2-1.3); Blood Urea Nitrogen 10 mg/dL (7-17); Calcium 9.4 mg/dL (8.4-10.2); Carbon Dioxide 17 mmol/L (22-30); Chloride 109 mmol/L (98-107); Estimated CRCL calculation 137 ml/min; Estimated Glomerular Filt Rate > 60; Glucose 103 mg/dL (65-110); Potassium 3.8 mmol/L (3.4-5.0); Sodium 134 mmol/L (137-145); Uric Acid 5.2 mg/dL (2.5-7.5)
[2024-07-02 20:22] LABS: Creatinine Urine 124.2 mg/dL; Total Protein Urine Random 13 mg/dL
--- NOTE | 2024-07-02 20:38 | PC.NURSE ---
Called Dr. Bruce, update on pt, contractions, dizzy, headache 4 out of 10, blurry vision, labs, blood pressure, and tracing. Orders received to discharge pt with macrobid prescription 100 mg twice a day for seven days, take excedrin tension as needed for headache, discontinue nifedipine at this time, keep next scheduled appointment, and when to return to the unit.
--- NOTE | 2024-07-02 20:58 | PC.NURSE ---
Pt discharged with instructions for macrobid prescription 100 mg twice a day for seven days, take excedrin tension as needed for headache, keep next scheduled appointment, and when to return to the unit.
== END 2024-07-02 20:58 | disposition home or self-care (01) ==
LOC: ANHOBOP 19:43 → ANHOBPP 19:43
PROVIDERS: Visit Provider Obstetrics & Gynecology
DX: O13.9 Gestational [pregnancy-induced] hypertension without significant proteinuria, unspecified trimester (principal); Z3A.00 Weeks of gestation of pregnancy not specified
CPT/HCPCS: 36415; 59025; 80053; 81001; 82570; 84156; 84550; 85025; 99199

== ENCOUNTER 2024-07-13 12:18 | Outpatient (CLI) | payer OTHER, SELFPAY ==
--- OUTSIDE RECORDS SUMMARY | 2024-07-13 12:26 | XMS_ITS | Clinical Summary ---
Author Organization [facility] Address [address] [place] [address] Care Team Providers Care Call Person Name Role Phone Unavailable Primary Care Provider Unavailabl e Source Comments [facility],non-owned Affiliates and Associated Physician Practices is amultiple site organization consisting of ambulatory clinics and hospital sitesin [place], [place], [place] and [place]. This disclosure is being madepursuant to the Care Everywhere program and may not contain all information available regarding this patient. Last updated 17.[facility] [employer] Allergies Active Allergy Reactions Criticality Noted Date [...] daily Reasons: Nausea and Vomiting in Active [place]-3 Fatty Acids (fish oil) 500 MG capsule Take 500 (five hundred) mg by mouth once daily Active promethazine (Phenergan) 25 MG tabletIndication s:Nausea and Vomiting Take 1 (one) tablet by mouth every 6 hours as needed for Nausea/Vomiting Reasons: Nausea and Vomiting Active Blood Glucose Monitoring Suppl (OneTouch Verio) w/Device KITIndications:H ypoglycemia Use 1 Each as directed 1 kit 5 Active Additional Information Patient not taking.Reason: Provider adjusted, Informant: Patient, Reported on 07/08/2024 Lancets (ONETOUCH DELICA PLUS 33G EXTRA FINE LANCET)Indicatio ns:Hypoglycemia Use 1 Each 4 times daily 150 Each 5 Active Additional Information Patient not taking.Reason: Provider adjusted, Informant: Patient, Reported on 07/08/2024 blood glucose test stripIndications :Hypoglycemia Use 1 (one) strip 4 times daily 150 strip 5 Active Additional Information Patient not taking.Reason: Provider adjusted, Informant: Patient, Reported on 07/08/2024 Alcohol Swabs (SM Alcohol Prep) Use 1 Each 4 times daily 150 Each 5 Active Additional Information Patient not taking.Reason: Provider adjusted, Reported on 07/08/2024 aspirin (Aspirin) 81 MG chew tabletIndication s:Preeclampsia [...] Encounters Date Type Department Care Team Description 07/08/2024 10:30 AM CDT - 07/08/2024 11:59 PM CDT Hospital Encounter [facility] [address] [place] [id number] Nnamdi Humphrey MD Discharge Disposition: Home or Self Care 06/17/2024 10:30 AM CDT - 06/17/2024 11:59 PM CDT Hospital Encounter [facility] [address] [place] [id number] Nnamdi Humphrey MD Discharge Disposition: Home or Self Care 05/13/2024 9:45 AM CDT - 05/13/2024 11:59 PM CDT Hospital Encounter [facility] [address] [place] [phone] Nnamdi Humphrey MD Discharge Disposition: Home or Self Care 04/15/2024 9:33 AM CHANNEL LAYER - 04/15/2024 11:59 PM CHANNEL LAYER Hospital Encounter [facility] [address] [place] [id number] Nnamdi Humphrey MD Discharge Disposition: Home or [...] on file Legal Sex Female 1:03 PM CHANNEL LAYER Gender Identity Not on file Sexual Orientation Not on file Last Filed Vital Signs Vital Sign Reading Time Taken Comments Blood Pressure 130/69 07/08/2024 11:00 AM CDT Pulse 77 07/08/2024 11:00 AM CDT Temperature - - Respiratory Rate - - Oxygen Saturation - - Inhaled Oxygen Concentration - - Weight 86.5 kg (190 lb 9.6 oz) 07/08/2024 11:00 AM CDT Height 157.5 cm (5' 2) 05/13/2024 11:05 AM CDT Body Mass Index 34.86 05/13/2024 11:05 AM CDT Plan of Treatment Upcoming Encounters Date Type Department Care Team (Late st Contact Info) Description 08/04/2024 9:00 AM CDT Appointment [facility] [address] [place] [id number] 08/04/2024 9:45 AM CDT Appointment [facility] [address] [place] [phone] Health Maintenance Due Date Last Done Comments PAP SMEAR 1998 HPV VACCINE (1 - 3-dose series) 2013 HEPATITIS C SCREENING 01/27/2016 DTAP/TDAP/TD VACCINES (1 - Tdap) 2017 HEPATITIS B VACCINE (1 of 3 - 19+ 3-dose series) 2017 COVID-19 VACCINE (1 - 2023-2 5 season) 2023 DEPRESSION SCREENING 02/12/2024 OB-TDAP CURRENT 05/31/2024 OB-RHOGAM INJECTION 06/07/2024 INFLUENZA VACCINE (Season Ended) 2024 ZOSTER VACCINE (1 of 2) 02/01/2048 HIV SCREENING Completed 06/04/2024, 02/20/2024 OB-ONE HOUR GLUCOSE Completed 06/04/2024 HIB VACCINE Aged Out No longer eligi [...] Procedure Name Priority Date/Time Associated Diagnosis Comments BIOPHYSICAL PROFILE W NST Routine 07/08/2024 10:57 AM CDT Benign essential hypertension, antepartum (HCC) Hx of preeclampsia, prior , currently (HCC) Encounter for screening (HCC) Encounter for ultrasound (HCC) 32 weeks gestation of (HCC) Encounter for anatomic survey (HCC) SONOGRAM - COMPLETE Routine 06/17/2024 1 1:38 AM CDT Benign essential hypertension, antepartum (HCC) Hx of preeclampsia, prior , currently (HCC) Encounter for ultrasound to assess growth (HCC) 29 weeks gestation of ([facility]) SONOGRAM - COMPLETE Routine 05/13/2024 9 :53 AM CDT Benign essential hypertension, antepartum (HCC) Hx of preeclampsia, prior , currently ([facility]) Encounter for anatomic survey ([facility]) 20 weeks gestation of ([facility]) SONOGRAM - COMPLETE Routine 04/15/2024 9 :34 AM CHANNEL LAYER Benign essential hypertension, antepartum Hx of preeclampsia, prior , currently Encounter for anatomic survey 20 weeks gestation of from Last 3 Months Results * BIOPHYSICAL PROFILE W NST (07/08/2024 10:57 AM CDT) Linked Results Indication ======== cHTN currently on no meds, Class II obesity History ====== OB History 2. Para 1 [id number] 1. live 2020. Gest. age 39 w + 5 d. Weight 2,771 g. Sex of child: female. Details: , Preeclampsia with HELLP Lab Tests Test Date Result NIPT Low risk, Female; per patient Maternal Assessment = Physical Exam Height 157 cm, 5 ft 2 in. Weight 86 kg, 190 lb. Initial weight 88 kg, 193 lb. BMI 34.75 kg/m . Initial BMI 35.30 kg/m . Weight gain -1 kg, -3 lb Method ====== Transabdominal ultrasound. View: Sufficient ========= Foy . Number of fetuses: 1 Dating ====== Date Details Gest. age KELLE Stated KELLE 32 w + 3 d 08/30/2024 Assigned dating based on stated KELLE, selected on 02/26/2024 32 w + 3 d 08/30/2024 General Evaluation Cardiac activity present. FHR 130 bpm. Presentation: cephalic Placenta: Placental site: posterior Amniotic Fluid Assessment ===== Amount of AF: normal MVP 4.6 cm. MAKI 17.1 cm. Q1 4.0 cm, Q2 4.6 cm, Q3 4.6 cm, Q4 3.9 cm Biophysical Profile 2: breathing movements 2: Gross body movements 2: tone 2: Amniotic fluid volume NST: reactive 11/20 Biophysical profile score Non Stress Test NST interpretation: reactive. Baseline FHR 120 bpm. Baseline variability: moderate. Accelerations: present Biometry BPD 85.0 mm 34w 2d 89% Hadlock HC 300.8 mm 33w 3d 37% Hadlock AC 300.7 mm 34w 0d 89% Hadlock Femur 62.3 mm 32w 2d 33% Hadlock Humerus 54.7 mm 31w 6d 38% Emma HC / AC 1.00 Weight Calculation: EFW 2,207 g 73% Hadlock EFW (lb,oz) 4 lb 14 oz EFW by Hadlock ([id number]) appropriate Growth Overview = Exam date GA BPD (mm) HC (mm) AC (mm) FL (mm) HL (mm) EFW (g) 04/15/2024 20w 3d 46.5 34% 176.2 28% 158.5 62% 34.1 52% 32.7 72% 375 62% 05/13/2024 24w 3d 62.3 73% 223.1 27% 205.9 65% 44.5 44% 42 68% 749 62% 06/17/2024 29w 3d 78.1 90% 277.5 43% 262.8 74% 55.3 27% 49.2 31% 1506 60% 07/08/2024 32w 3d 85 89% 300.8 37% 300.7 89% 62.3 33% 54.7 38% 2207 73% Anatomy The following structures appear normal: Abdomen Stomach. Kidneys. Bladder. Impression ========= Single, live, intrauterine at 32w 3d The growth & amniotic fluid volume are normal. The biophysical profile is 11/20. Follow-up ======== Continue weekly NST+BPP Follow-up U/S for growth at 36 weeks Please see EXTRUDER OPERATOR VERTICAL consult note from today Coding ====== Procedures [id number]: [place] [id number]: Biophysical Profile W NST [facility] PACS Anatomical Region Laterality Modality Other 07/08/2024 10:[address] [facility] Denis Bruce MD [facility] ORDERABLES Edited Result - Final * SONOGRAM - COMPLETE (06/17/2024 11:38 AM CDT) Only the most recent of3 resultswithin the time period is included. Linked Results Indication ======== cHTN currently on no meds, Class II obesity History ====== OB History 2. Para 1 [id number] 1. live 2020. Gest. age 39 w [...] 3 lb 5 oz EFW by Hadlock ([id number]) appropriate Growth Overview Exam date GA BPD [...] growth at 33 weeks Coding ====== Procedures [id number]: US Preg Uterus Follow Up [place] PACS Anatomical Region Laterality Modality Other 06/17/2024 11:3 8 AM CDT R Denis Bruce MD [facility] ORDERABLES Edited Result - Final from Last 3 Months Insurance [id number] [place] [address]
--- OUTSIDE RECORDS SUMMARY | 2024-07-13 12:26 | XMS_ITS | Clinical Summary ---
Author Organization [facility] Address [address] [place] [address] Phone Care Team Providers Care Wood Room Supervisor Name Role Phone Alexi Rodriguez MD Primary Care Provider Allergies Active Allergy Reactions Criticality Noted Date Comments Penicillin G Anaphylaxis 01/29/2024 Medications No known medications Social History Tobacco Use Types Packs/Day Years Used Date Smoking Tobacco: Never Assessed Estimated Date of Delivery Comme nts Yes 08/30/2024 Sex and Gender Information Value Date Recorded Sex Assigned at Not on file Legal Sex Female 6:21 PM ZIPPER REPAIRER Gender Identity Not on file Sexual Orientation Not on file Last Filed Vital Signs Vital Sign Reading Time Taken Comments Blood Pressure 142/66 01/29/2024 10:03 PM ZIPPER REPAIRER Pulse 81 01/29/2024 10:03 PM ZIPPER REPAIRER Temperature 36.9 C (98.5 F) 01/29/2024 6:27 PM ZIPPER REPAIRER Respiratory Rate 18 01/29/2024 10:03 PM ZIPPER REPAIRER Oxygen Saturation 100% 01/29/2024 10:03 PM ZIPPER REPAIRER Inhaled Oxygen Concentration - - Weight 85.7 kg (189 lb) 01/29/2024 6:25 PM ZIPPER REPAIRER Height 160 cm (5' 3) 01/29/2024 6:25 PM ZIPPER REPAIRER Body Mass Index 33.48 01/29/2024 6:25 PM ZIPPER REPAIRER Plan of Treatment Health Maintenance Due Date [...] age to complete this topic Insurance [place]ID [place] Care Teams Wood Room Supervisor Relationship Specialty Start Date End Date Alexi Rodriguez MD [address] [place] [phone] PCP - General Family Medicine 01/29/24
[2024-07-13 12:45] VITALS: BP 130/68; PULSE 77
[2024-07-13 13:13] VITALS: BP 130/68; PULSE 84
[2024-07-13 13:16] LABS: Add Urine Microscopic? NO; Appearance Urine Clear (Clear); Bilirubin Urine Negative (Negative); Blood Urine Negative (Negative); Color Urine Yellow (Yellow); Glucose Urine UA Negative (Negative); Ketones Urine Negative (Negative); Leukocyte Esterase Ur Negative LEU/UL (Negative); Nitrate Urine Negative (Negative); Protein Urine Negative (Negative); Specific Grav Ur 1.011 (1.001-1.035)
[2024-07-13 13:20] LABS: OBXCEM ROM Plus Negative (Negative)
--- NOTE | 2024-07-13 13:20 | PC.NURSE ---
1310- Spoke with Dr Bruce regarding patient admission for possible leaking. ROM plus negative. NST reactive. Patient concerned about previous UTI, if cleared up. ORders to send a UA and call with results.
--- NOTE | 2024-07-13 13:24 | PC.NURSE ---
1323- Spoke with Dr. Bruce regarding UA results. Orders for discharge to home.
== END 2024-07-13 13:26 | disposition home or self-care (01) ==
LOC: ANHOBOP 12:24 → ANHOBPP 12:24
PROVIDERS: Visit Provider Obstetrics & Gynecology
DX: O42.90 Premature rupture of membranes, unspecified as to length of time between rupture and onset of labor, unspecified weeks of gestation (principal); Z3A.00 Weeks of gestation of pregnancy not specified
CPT/HCPCS: 59025; 81003; 84112; 99199

== ENCOUNTER 2024-08-06 10:51 | Outpatient (RCR) | payer OTHER, SELFPAY ==
[2024-08-06 10:51] VITALS: BP 137/82
== END 2024-08-15 09:58 | disposition other institution (70) ==
LOC: ANHOBOP 10:51
PROVIDERS: Visit Provider Obstetrics & Gynecology
DX: O41.8X90 Other specified disorders of amniotic fluid and membranes, unspecified trimester, not applicable or unspecified (principal)
CPT/HCPCS: 59025

== ENCOUNTER 2024-08-10 06:11 | Inpatient (IN) | payer OTHER, SELFPAY ==
[2024-08-10] VITALS (85 sets, daily range): BP systolic 107–181; BP diastolic 48–95; PULSE 46–112; RESP 16; TEMP 36.4–37.1; O2SAT 83–100; BMI 34.7
--- NOTE | 2024-08-10 06:50 | LDADM ---
This patient, Raya Pritchard, was admitted to Labor/Delivery/Recovery 107 on 08/10/24 at 06:11. Plans for labor, pain management and were discussed with patient. Patient/family oriented to hospital policies and general routines including ID bracelet, bed and alarms, visiting hours, pain management, procedures, bathroom and other care routines, personal items, smoking policy, room service/diet and guest tray routines, infant security routines, and visiting hours. Patient/Family are encouraged to report perceived risks to care and to ask questions if they do not understand what they are told or what they should do. See OBIX for further documentation.
[2024-08-10 07:00] LABS: Hematocrit 36.2 % (37.0-47.0); Hemoglobin 12.3 g/dL (12.0-15.0); Immature Granulocyte Percent A 0.3 % (0-0.5); Lymphocytes Absolute Auto 1.63 K/mm3 (0.9-3.2); Mean Corpuscular HGB Conc 34.0 g/dl (32-36); Mean Corpuscular Hemoglobin 31.1 pg (26-34); Mean Corpuscular Volume 91.6 fl (80-100); Nucleated Red Blood Cells Absolute Auto 0.000 K/mm3 (0.0-0.012); Nucleated Red Blood Cells Perc 0.0 % (0.0-0.2); Platelet Count Result 290 k/mm3 (150-375); Red Blood Count 3.95 M/mm3 (4.2-5.4); White Blood Count 8.6 K/mm3 (4.5-10.0)
[2024-08-10] MEDS: OXYTOCIN 30 UNITS/NS 500 ML 30 UNITS/500 ML BAG IV CONT (07:35)
[2024-08-10] MEDS: LACTATED RINGERS 1,000 ML 125 ML IV CONT (07:35)
[2024-08-10 07:44] LABS: Syphilis IgG/IgM Antibody Non-Reactive (Nonreactive)
--- NOTE | 2024-08-10 08:40 | P.HPUP_ITS ---
History and Physical Update Update Date/Time: 08/10/24 08:40 24-year-old multipara at 37 weeks who presents for induction of labor for chronic hypertension treated medically. Artificial rupture membranes - clear fluid - 3 cm/50%/-3. Reassuring status. Active management of labor- dilatation. History and Physical has been reviewed, including an updated exam of the patient. There are NO changes in the patient's condition. Risks, benefits, and alternatives have been discussed and questions answered. Patient agrees to proceed with procedure.
[2024-08-10] MEDS: LABETALOL HCL 50 MG TABLET PO ×2 (09:47→21:35)
--- NOTE | 2024-08-10 13:44 | PM.OBPRVD ---
OB - Vaginal Delivery Note Procedure Delivery date: 08/10/24 Events: Chronic Hypertension (on labetalol) Induction method: Per Pitocin Protocol Delivery augmentation: Rupture of Membranes Delivery monitor: External FHT and Internal Uterine Route of delivery: Episiotomy description: None Laceration Description: None Specimen: No Quantitative Blood Loss (ml): 50 Anesthesia type: None Disposition: Floor Complications: No immediate complications Narrative: See H&P and notes for details on patient's admission and labor. She progressed to complete cervical dilation and at the appropriate time began pushing. With adequate expulsive efforts by the mother, the baby's head was delivered without difficulty. Nuchal cord was not present. The baby's right shoulder was anterior and delivered under the pubic symphysis without difficulty. The posterior shoulder and the rest of the baby delivered without difficulty. The umbilical cord was doubly clamped and cut after 60 seconds of delayed cord clamping. Care of the was then assumed by the nursing staff. [place] Baby Date of : 08/10/24 Gestational Age by Date: 37 gender: Female presentation: vertex position: Left Occiput Anterior Placenta delivery description: Expressed Cord Vessel Description: 3 Vessels and Delayed Cord Clamping
[2024-08-10] MEDS: OXYTOCIN 30 UNITS/NS 500 ML 30 UNITS/500 ML BAG 125 UNITS IV CONT (14:02)
--- NOTE | 2024-08-10 16:02 | PC.NURSE ---
Patient transferred to post room #286 via wheel chair. Support person present. Oriented to unit, room, information board, rooming in, admission packet and security measures. Patient verbalizes understanding.
[2024-08-10] MEDS: DOCUSATE SODIUM 100 MG CAPSULE PO (16:39)
[2024-08-10] MEDS: ACETAMINOPHEN 325 MG TABLET 650 MG PO (16:40)
[2024-08-10] MEDS: LANOLIN (LANSINOH) 7.5 GM CREAM 1 APPLIC TOPICAL (16:40)
[2024-08-11 04:20] VITALS: BP 123/70; PULSE 84; RESP 18; TEMP 36.5; O2SAT 100
[2024-08-11] MEDS: IBUPROFEN 600 MG TABLET PO ×2 (04:26→19:09)
[2024-08-11 04:48] LABS: Hematocrit 36.0 % (37.0-47.0); Hemoglobin 11.7 g/dL (12.0-15.0)
[2024-08-11 07:35] VITALS: BP 132/63; PULSE 78; RESP 18; TEMP 36.3; O2SAT 98
--- NOTE | 2024-08-11 07:37 | P.PNOB_ITS ---
OB - PN: Subj Subjective Date/time seen: 08/11/24 07:37 Interval history: pp day 1 doing well denies complaints OB - PN: Obj Data Labs 08/11/24 04:21 Labs: Laboratory Results - last 24 hr 08/10/24 08/11/24 06:30 04:21 Hgb 11.7 L Hct 36.0 L Syphilis IgG/IgM Ab Non-reactive Blood Type A Positive Antibody Screen Negative OB - PN A/P Plan day: 1 Plan: routine care Time Spent With Patient Time: Total time spent is greater than 50% in coordination of care (as documented) at patient's floor/unit and/or counseling patient: Review of Systems 2 Review of Systems: All systems reviewed & are unremarkable except as noted in HPI and below Exam 2 Const: General: cooperative, healthy appearing and comfortable Chest: Chest palpation & inspection: normal inspection of the chest Resp: Effort & Inspection: normal respiratory effort Cardio: Rate: regular rate GI: Other: soft Back/Spine/Pelvis: Back: no CVA tenderness
--- NOTE | 2024-08-11 08:26 | PC.NURSE ---
Introductions were made, then consulted with patient to assess needs related to . Mother led the conversation with her?plans to feed?her infant and the?experience so far. Mother states that is nursing well on the left breast and denies any discomfort. However, is having difficulty with latching to the right breast even with utilizing the nipple shield and states that her nipple is flat on this breast. Mother states that she will call this RN for infants next feeding to assist with latching to the right breast.
[2024-08-11 09:41] VITALS: PULSE 64
[2024-08-11] MEDS: LABETALOL HCL 50 MG TABLET PO (09:41)
[2024-08-11] MEDS: DOCUSATE SODIUM 100 MG CAPSULE PO ×2 (09:43→17:50)
[2024-08-11] MEDS: MULTIVIT/MIN/PREN/FOL AC/IRON TABLET 1 TAB PO (09:43)
[2024-08-11] MEDS: TETANUS,DIPHTHERIA,AC PERTUSSIS ADULT (0.5 ML) BOOSTRIX IM (09:43)
[2024-08-11 12:13] VITALS: BP 120/65; PULSE 76; RESP 16; TEMP 37.3; O2SAT 97
--- NOTE | 2024-08-11 17:49 | PC.NURSE ---
1630. called to assist with latch. Mom attempted to feed on the R breast in football position. Infant was sleepy and reluctant to latch. Mom encouraged to hand express milk and give to infant. 1645. Mom states she was able to hand express 20-30 drops of milk and feed to infant. Mom was encouraged to do skin to skin and attempt to get to latch again to feed in the next 30 min or so. Mom was instructed to call for assistance if she is unable to get to latch and feed. Mom verbalized understanding. Reported to the primary RN.
[2024-08-11 20:36] VITALS: BP 124/68; PULSE 87; RESP 16; TEMP 36.6; O2SAT 99
[2024-08-12 07:25] VITALS: BP 121/61; PULSE 88; RESP 18; TEMP 37.2; O2SAT 99
--- NOTE | 2024-08-12 07:49 | P.PNOB_ITS ---
OB - PN: Subj Subjective Date/time seen: 08/12/24 07:49 Interval history: pp day 2 doing well denies complaints desires d/c home OB - PN: Obj Data Labs 08/11/24 04:21 OB - PN A/P Plan day: 2 Plan: routine care and discharge home Time Spent With Patient Time: Total time spent is greater than 50% in coordination of care (as documented) at patient's floor/unit and/or counseling patient: Review of Systems 2 Review of Systems: All systems reviewed & are unremarkable except as noted in HPI and below Exam 2 Const: General: cooperative, healthy appearing and comfortable Chest: Chest palpation & inspection: normal inspection of the chest Resp: Effort & Inspection: normal respiratory effort Cardio: Rate: regular rate Back/Spine/Pelvis: Back: no CVA tenderness
--- NOTE | 2024-08-12 08:05 | PC.NURSE ---
Observed latched to the left breast in cradle hold. Mom states that she does not have consistent pain with nursing. The latch looks good and baby is suckling consistently with swallows heard. She has a nipple shield to assist with latching on the right breast but she states that baby doesn't like to latch to the shield. She has been feeding only on the left breast so she is advised to initiate pumping on the right side or both breasts if desired. We reviewed that babies who are born a little early sometimes need a little extra help bringing the milk in. Patient is instructed to call out at the next feeding and we can work on latching baby to the right breast. Patient agrees to start pumping at home. RN updated. Mother attempted to feed on the right breast independently. She says that baby would not latch to the shield so she took it off and was able to latch baby for about 5 minutes without the shield. She did not call out for assistance.
[2024-08-12 09:16] VITALS: PULSE 88
[2024-08-12] MEDS: MULTIVIT/MIN/PREN/FOL AC/IRON TABLET 1 TAB PO (09:16)
--- NOTE | 2024-08-12 10:30 | PC.NURSE ---
is [high risk for ineffective ] due to gestational age of 37 weeks. Initiated a feeding plan for infant with formula supplementation if mom chooses. There is not yet a medical indication requiring supplementation at this time. Mother is instructed to pump (with her pump from home) after every or at least 5 times a day. Breast pump instructions given on pumping schedule for milk production, collection, and storage of human milk (Mom/Baby Guide for reference). Reviewed standard discharge information with patient including monitoring for required output, transition of stools, feeding 8-12 times every 24 hours, milk production, and follow up at [place] and with aluminum shingle roofer in the first week of life. Parents are encouraged to take the feeding log and continue to track feedings and output for the first week . Offered outpatient resources with [facility] referral and Services at [place]. Patient has the Mom/Baby Guide for further education and reference for common concerns, phone numbers, and guidance on when to call the doctor. A feeding plan was added to the ?s discharge plan. Patient states that she has no further questions or concerns regarding . Reported to Primary RN.?
--- NOTE | 2024-08-12 14:13 | WPDANLDPN2 ---
Anes-Prog Note L&D Date/Time: 08/12/24 14:13 Comfortable throughout: labor and delivery Neuraxial method: epidural Epidural/Spinal procedure site: clean & non-tender Neuro status: Neuro function grossly intact. Cardiovascular status: normal Respiratory status: normal Airway patency: baseline Mental status: baseline Post-Op hydration status: normal Vital Signs: Last Vital Signs Temp 37.2 C 08/12/24 07:25 Pulse 88 08/12/24 09:16 Resp 18 08/12/24 07:25 BP 121/61 08/12/24 07:25 Pulse Ox 99 08/12/24 07:25 O2 Del Method Room Air 08/12/24 09:15 Post-procedural complaints: none Patient feedback: Patient satisfied with anesthetic care.
--- NOTE | 2024-08-13 19:33 | P.DS_ITS ---
DS: Admitting Diagnosis Discharge Date 08/12/24 Admitting Diagnosis IOL OB - DS: Summary OB Procedures : None OB Procedures Intrapartum: Spontaneous Vag Delivery OB Procedures: : None Peripartum Data Laceration Description: None Episiotomy description: None Time Spent with Patient Time attestation: Total time spent providing and/or coordinating discharge services: Discharge Plan Discharge Attending physician on discharge: Berlin Sterling Consulting providers: Berlin Sterling; Rocio Fuentes Discharging Clinician: Rocio Fuentes Patient Disposition: Home Activity: pelvic rest Diet: regular Discharge Instructions: Education: Mom and Baby Guide Given to: Mother Follow-Up: Call your delivering provider's office for an appointment to be seen in: 4 Weeks [facility]. Appointment Date/Time: August 13, 2024 at 12:30 pm What to expect at your follow-up visit: Blood Pressure Check Physical Assessment Call [phone] if you are unable to keep your appointment time. BREAST CARE: * Wear a snug supportive bra. * For engorgement discomfort: Breast Feeding: * Apply warm moist washcloths * Express milk as needed to relieve engorgement * Wear loose clothing Bottle Feeding: * May apply ice packs * For sore nipples: * Identify correct latch-on * Apply warm moist washcloths before and after nursing * Air dry nipples after nursing * May apply Lansinoh cream to nipples EPISIOTOMY/PERINEAL CARE: * Until bleeding stops, use your shun bottle after urinating * Change your pad frequently throughout the day * You may take sitz baths several times a day (fill your bathtub with warm water and soak for 20 minutes.) Do NOT bathe in the water * No tub baths until seen by your physician - You may shower ACTIVITY: * Rest as much as possible. * Do not exercise or lift anything heavier than your baby (such as laundry or other children.) * Avoid stairs or driving as much as possible. * Do not put anything into the vagina. No douching, tampons, or sexual activity until seen by physician. NOTIFY PHYSICIAN IF YOU HAVE ANY QUESTIONS OR IF ANY OF THE FOLLOWING SYMPTOMS OCCUR: * If your episiotomy or incision becomes red, swollen, or more painful than what you have experienced in the hospital. * If your vaginal bleeding becomes foul smelling. * If your vaginal bleeding becomes more heavy than a period or if your bleeding changes from pink to bright red. However, you may pass an occasional walnut- sized clot once or twice for the first week . * If you experience a sharp, shooting pain in you calves. * If you discover a hard, reddened area on your breast or if you experience flu- like symptoms. DIET: * Eat regular, well-balanced meals. * Drink plenty of fluids daily. If , drink to thirst. Patient Language: Irish Stand Alone Forms: General Discharge Information Follow-up/Referrals: Rocio Fuentes CNM [Certified Nurse Automobile Engine Assembler] - Discharge Medications: Continued ursodiol 300 mg capsule aspirin 81 mg tablet,chewable nitrofurantoin monohyd/m-cryst [Macrobid] 100 mg capsule 100 mg PO Q12H 7 Days Qty: 14 0RF Rx Instructions: must administer with a meal/food labetalol 100 mg tablet Date of admission: 08/10/24 06:11 Primary Care Provider: Michael Truong Admitting Provider: Patel Bruce Attending physician on admission: Patel Bruce Condition: Stable
== END 2024-08-12 14:24 | disposition home or self-care (01) | DRG 560 ==
LOC: ANHLDR 06:13 → ANHOB2 16:03
PROVIDERS: Obstetrics & Gynecology; Admitting Provider Obstetrics & Gynecology; Visit Provider Obstetrics & Gynecology
DX: O10.92 Unspecified pre-existing hypertension complicating childbirth (principal); Z37.0 Single live birth; Z3A.37 37 weeks gestation of pregnancy
CPT/HCPCS: 36415; 85014; 85018; 85025; 86593; 86850; 86900; 86901; 90715; A9270; J2590; J7120

== ENCOUNTER 2024-11-29 13:23 | Emergency (ER) | payer OTHER, SELFPAY ==
[2024-11-29 13:23] VITALS: BP 126/79; PULSE 143; RESP 18; TEMP 36.6; O2SAT 96
--- NOTE | 2024-11-29 13:45 | ED.GENADULT ---
HPI - General Adult General Chief complaint: Unspecified Stated complaint: possible mastitis Time Seen by Provider: 11/29/24 13:30 History of Present Illness HPI narrative: Rosario is a 24F with a PMH of HTN that presented to the ED with painful swelling and erythema of the left breast. She is currently and pumping. No systemic symptoms currently. Related Data Home Medications ?Medication ?Instructions ?Recorded ?Confirmed ?Last Taken ?Type aspirin 81 mg chewable tablet 07/02/24 08/09/24 23:30 History ursodiol 300 mg capsule mg 07/02/24 08/09/24 23:30 History labetalol 100 mg tablet mg 08/10/24 08/09/24 23:30 History Allergies Allergy/AdvReac Type Severity Reaction Status Date / Time Penicillins Allergy Unknown Verified 11/29/24 13:43 Review of Systems Review of Systems: All systems reviewed & are unremarkable except as noted in HPI and below PMFSH Social History Social History Smoking status: Never smoker Substance use: never Do You Feel Safe in your Home?: Yes Lack of Transportation: No Lack of Food: Never True Current Housing: I Have Housing Concerned About Future Housing: No Difficulty Paying Gas/Electric Bills: No Difficulty Paying for Meds: No Currently Unemployed: No Education: High School Diploma/GED Difficulty w/ Childcare or Family Care: No Spiritual care concerns: No Exam Const: General: cooperative, healthy appearing, comfortable, no acute distress, well developed, alert, awake and Physically active Orientation/consciousness: oriented to person, oriented to place and oriented to time HENMT: Head: normal to inspection, normocephalic and atraumatic Ears: hearing grossly normal bilaterally and external ears normal Face/Nose/Sinus: Normal external nose present Eyes: General: appearance normal, both eyes and all related structures Periorbital: periorbital findings normal Sclera: sclerae normal Pupils: Equal, round and reactive pupils present Neck: Neck: normal visual inspection Chest: Chest palpation & inspection: normal inspection of the chest Other: Left breast was warm erythematous and TTP Resp: Effort & Inspection: normal respiratory effort, able to speak in complete sentences and no respiratory distress Cardio: Jugular venous distension: no JVD Skin: General skin exam: normal color and no rashes or lesions noted Neuro: General: oriented to person, oriented to place and oriented to time Cranial nerves: Yes Equal, round and reactive pupils present Extrem: General: normal to inspection Course Course Emergency Course: Sensitive exam done with Asia Sahu RN. Ordered clindamycin Vital Signs Vital signs: Vital Signs Temperature 97.9 F 11/29/24 13:23 Pulse Rate 143 H 11/29/24 13:23 Respiratory Rate 18 11/29/24 13:23 Blood Pressure 126/79 11/29/24 13:23 Pulse Oximetry 96 11/29/24 13:23 Oxygen Delivery Room Air 11/29/24 13:23 Temperature 97.9 F 11/29/24 13:23 Pulse Rate 143 H 11/29/24 13:23 Respiratory Rate 18 11/29/24 13:23 Blood Pressure 126/79 11/29/24 13:23 Pulse Oximetry 96 11/29/24 13:23 Oxygen Delivery Room Air 11/29/24 13:23 Medical Decision Making Vital Signs Vital Signs: Vital Signs Temperature 97.9 F 11/29/24 13:23 Pulse Rate 143 H 11/29/24 13:23 Respiratory Rate 18 11/29/24 13:23 Blood Pressure 126/79 11/29/24 13:23 Pulse Oximetry 96 11/29/24 13:23 Oxygen Delivery Room Air 11/29/24 13:23 Temperature 97.9 F 11/29/24 13:23 Pulse Rate 143 H 11/29/24 13:23 Respiratory Rate 18 11/29/24 13:23 Blood Pressure 126/79 11/29/24 13:23 Pulse Oximetry 96 11/29/24 13:23 Oxygen Delivery Room Air 11/29/24 13:23 Discharge Plan Discharge Clinical Impression: Mastitis Patient Disposition: Home Condition: Stable Instructions: Mastitis (ED) Patient Language: Bulgarian Prescriptions: New clindamycin HCl [Cleocin HCl] 150 mg capsule 450 mg PO TID 5 Days Qty: 45 0RF No Action ursodiol 300 mg capsule aspirin 81 mg tablet,chewable nitrofurantoin monohyd/m-cryst [Macrobid] 100 mg capsule 100 mg PO Q12H 7 Days Qty: 14 0RF Rx Instructions: must administer with a meal/food labetalol 100 mg tablet Follow-up/Referrals: UNKNOWN,DOCTOR [Non-Staff]
[2024-11-29] MEDS: CLINDAMYCIN HCL 150 MG CAP 450 MG PO (14:02)
== END 2024-11-29 14:15 | disposition home or self-care (01) ==
LOC: CHSED 14:01
PROVIDERS: Emergency Provider Family Medicine
DX: N61.0 Mastitis without abscess (principal); I10 Essential (primary) hypertension
CPT/HCPCS: 99283

== ENCOUNTER 2024-12-01 10:24 | Outpatient (CLI) | payer OTHER, SELFPAY ==
--- NOTE | 2024-12-01 | ECG_ITS ---
Test Date: 2024-12-01 10:42:05 Measurements Intervals [place] Rate: 65 P: 51 AR: 165 QRS: 43 QRSD: 85 T: 10 QT: 395 QTc: 412 Interpretive Statements SINUS RHYTHM WITH MARKED SINUS ARRHYTHMIA BORDERLINE ST-T WAVE ABNORMALITY- INFERIOR LEADS BASELINE ARTIFACT- I, II, III, AVR, AVL, AVF, V2, V4-V6 BORDERLINE ECG No previous ECG available for comparison Electronically Signed On 12-01-2024 11:29:41 CDT by Epi Duffy D.O.
== END 2024-12-01 10:25 | disposition home or self-care (01) ==
PROVIDERS: Visit Provider Obstetrics & Gynecology
DX: R94.31 Abnormal electrocardiogram [ECG] [EKG] (principal); R00.2 Palpitations
CPT/HCPCS: 93005

== ENCOUNTER 2024-12-02 10:21 | Outpatient (CLI) | payer OTHER, SELFPAY ==
--- NOTE | ~2024-12-02 | US_ITS ---
EXAMINATION: US breast LT complete HISTORY: 24-year-old female since 4 months with history of mastitis for 4 days, which is better with antibiotics. COMPARISON: None FINDINGS: Targeted ultrasound of all 4 quadrants of the left breast was completed. There is heterogeneous tissue pattern throughout the breast. There is no evidence of edema, mass or abnormal fluid collection throughout the breast parenchyma. Prominent fluid filled dilated ducts are noted in the subareolar region. IMPRESSION: No sonographic abnormality compatible with mastitis is identified. No evidence of breast abscess. BI-RADS 2, BENIGN Continue clinical management of patient's symptoms. Reviewed, dictated and finalized at location B.
--- OUTSIDE RECORDS SUMMARY | 2024-12-02 12:35 | XMS_ITS | Clinical Summary ---
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 Name Role Phone Alexi Rodriguez MD Primary Care Provider [phone] Allergies Active Allergy Reactions Criticality Noted Date Comments Penicillin G Anaphylaxis 01/29/2024 Medications No known medications Social History Tobacco Use Types Packs/Day Years Used Date Smoking Tobacco: Never Assessed Comments Unknown Sex and Gender Information Value Date Recorded Sex Assigned at Not on file Legal Sex Female 6:21 PM TIRE STRIPPER Gender Identity Not on file Sexual Orientation Not on file Last Filed Vital Signs Vital Sign Reading Time Taken Comments Blood Pressure 142/66 01/29/2024 10:03 PM TIRE STRIPPER Pulse 81 01/29/2024 10:03 PM TIRE STRIPPER Temperature 36.9 C (98.5 F) 01/29/2024 6:27 PM TIRE STRIPPER Respiratory Rate 18 01/29/2024 10:03 PM TIRE STRIPPER Oxygen Saturation 100% 01/29/2024 10:03 PM TIRE STRIPPER Inhaled Oxygen Concentration - - Weight 85.7 kg (189 lb) 01/29/2024 6:25 PM TIRE STRIPPER Height 160 cm (5' 3) 01/29/2024 6:25 PM TIRE STRIPPER Body Mass Index 33.48 01/29/2024 6:25 PM TIRE STRIPPER Plan of Treatment Health Maintenance Due Date Last Done Comments TdaP Immunization 1998 Human Papillomavirus (HPV) Immunization (1 - 3-dose series) 2013 Hepatitis B Immunization (1 of 3 - 19+ 3-dose series) 2017 Pap Smear 2019 Influenza Immunization (#1) 2024 SARS-COV-2 Immunization ( season) 2024 Respiratory Syncytial Virus (RSV) Immunization (Adult) (1 - 1-dose 75+ series) 2073 Meningococcal Immunization (ACWY) Aged Out No longer eligible based on patient's age to complete this topic Pneumococcal Immunization Combined Aged Out No longer eligible based on patient's age to complete this topic Rotavirus Immunization Aged Out No lo nger eligible based on patient's age to complete this topic Insurance [place]ICAID [place] Care Teams Form Tamping Machine Operator Relationship Specialty Start Date End Date Alexi Rodriguez MD [address] [place] [id number] PCP - General Family Medicine 01/29/24
--- OUTSIDE RECORDS SUMMARY | 2024-12-02 12:35 | XMS_ITS | Continuity of Care Document ---
Author Organization [facility] Address [address] [place] [address] Care Team Providers Care Storeroom Attendant Name Role Phone ALFREDO CHRISTOPHER Primary Care Provider Assessment No assessment recorded. Plan of Treatment Reminders Order Date Submit Date Provider Last Modified By Organization Details Last Modified Time Details Appointments None recorded . Lab CBC w/ auto diff 025 12/02/19 [facility] (Lab), [address] [place], [address], 05:08:50 CMP, serum or plasma 025 12/02/19 [facility] ([facility]), [address] [place], [address], 5 05:08:51 Referral None recorded . Procedures None recorded . Surgeries None recorded . Imaging None recorded . Medication Orders None recorded . Patient TargetsNo targets recorded. Patient InstructionsNo instructions recorded. Reason for Referral None Reported. Results Created Date Observation Date Name Description Value Unit Range Abnormal Flag Note LastModifiedBy Organization Detail LastModifiedTime 12/02/1912/01/2024 CBC W/DIF F WBC 10.5 10'3/ uL 3.5-10 .5 Not Available [facility] (Lab) [address] [facility], [place], [address], 12/02/2024 05:08:50 12/02/19 25 12/01/2024 CBC W/DIF F RBC 3.83 10'6/ uL (based on docume nted legal sex) 3.80-5 .20 Not Available [facility] (Lab) [address], [place], [address], 12/02/2024 05:08:50 12/02/19 25 12/01/2024 CBC W/DIF F HGB 11.9 g/dL (based on docume nted legal sex) 11.6-1 5.4 Not Available [facility] (Lab) [address], [place], [address], 12/02/2024 05:08:50 12/02/19 25 12/01/2024 CBC W/DIF F HCT 36.8 % (based on docume nted legal sex) 34.0-4 5.0 Not Available [facility] (Lab) [address], [place], [address], 12/02/2024 05:08:50 12/02/19 25 12/01/2024 CBC W/DIF F MCV 96.1 fL 80.0-9 9.0 Not Available [facility] (Lab) [address], [place], [address], 12/02/2024 05:08:50 12/02/19 25 12/01/2024 CBC W/DIF F MCH 31.1 pg 27.0-3 4.0 Not Available [facility] (Lab) [address], [place], [address], 12/02/2024 05:08:50 12/02/19 25 12/01/2024 CBC W/DIF F MCHC 32.3 g/dL 32.0-3 5.5 Not Available [facility] (Lab) [address] [place], [address], 12/02/2024 05:08:50 12/02/19 25 12/01/2024 CBC W/DIF F RDW 13.7 % 11.0-1 5.0 Not Available [facility] (Lab) [address] [place], [address], 12/02/2024 05:08:50 12/02/19 25 12/01/2024 CBC W/DIF F plt 331 10'3/ uL 150-40 0 Not Available [facility] (Lab) [address] [facility], [place], [address], 12/02/2024 05:08:50 12/02/19 25 12/01/2024 CBC W/DIF F MPV 9.8 fL 8.8-12 .1 Not Available [facility] (Lab) [address] [facility], [place], [address], 12/02/2024 05:08:50 12/02/19 25 12/01/2024 CBC W/DIF F NRBC's 0.0 % 0.0 Not Available [facility] (Lab) [address] [facility], [place], [address], 12/02/2024 05:08:50 12/02/19 25 12/01/2024 CBC W/DIF F absolute NRBCs 0.0 10'3/ uL no refere nce range establ ished Not Available [facility] (Lab) [address] [facility], [place], [address], 12/02/2024 05:08:50 12/02/19 25 12/01/2024 CBC W/DIF F neutrophils 70.2 % 34.0-7 3.0 Not Available [facility] (Lab) [address] [facility], [place], [address], 12/02/2024 05:08:50 12/02/19 25 12/01/2024 CBC W/DIF F lymphocytes 20.1 % 15.0-5 0.0 Not Available [facility] (Lab) [address] [facility], [place], [address], 12/02/2024 05:08:50 12/02/19 25 12/01/2024 CBC W/DIF F monocytes 6.0 % 1.0-15 .0 Not Available [facility] (Lab) [address] [facility], [place], [address], 12/02/2024 05:08:50 12/02/19 25 12/01/2024 CBC W/DIF F eosinophils 3.0 % 0.0-8. 0 Not Available [facility] (Lab) [address] [facility], [place], [address], 12/02/2024 05:08:50 12/02/19 25 12/01/2024 CBC W/DIF F basophils 0.3 % 0.0-2. 0 Not Available [facility] (Lab) [address] [facility], [place], [address], 12/02/2024 05:08:50 12/02/19 25 12/01/2024 CBC W/DIF F immature granulocytes 0.4 % no define d refere nce range Immat ure Granu locyt es (IG) repre sents autom ated enume ratio n of Metam yeloc ytes, Myelo cytes and Promy elocy cesilia when IG is < 5%. Blast s are not inclu ded in IG and repor diallo separ ately if prese nt. Not Available [facility] (Lab) [address] [facility], [place], [address], 12/02/2024 05:08:50 12/02/19 25 12/01/2024 CBC W/DIF F absolute neutrophils 7.4 10'3/ uL 1.5-8. 0 Not Available [facility] (Lab) [address] [facility], [place], [address], 12/02/2024 05:08:50 12/02/19 25 12/01/2024 CBC W/DIF F absolute lymphocytes 2.1 10'3/ uL 1.0-4. 0 Not Available [facility] (Lab) [address] [facility], [place], [address], 12/02/2024 05:08:50 12/02/19 25 12/01/2024 CBC W/DIF F absolute monocytes 0.6 10'3/ uL 0.2-1. 0 Not Available [facility] (Lab) [address] [facility], [place], [address], 12/02/2024 05:08:50 12/02/19 25 12/01/2024 CBC W/DIF F absolute eosinophils 0.3 10'3/ uL 0.0-0. 6 Not Available [facility] (Lab) [address] [facility], [place], [address], 12/02/2024 05:08:50 12/02/19 25 12/01/2024 CBC W/DIF F absolute basophils 0.0 10'3/ uL 0.0-0. 3 Not Available [facility] (Lab) [address] [facility], [place], [address], 12/02/2024 05:08:50 12/02/19 25 12/01/2024 CBC W/DIF F absolute immature granulocytes 0.0 10'3/ uL 0.00-0 .10 Refer ence range s for nonbi nary/ inter sex or unspe cifie d gende r patie nts have not been estab lishe d. Pleas e refer to the kristiano wing table for range s estab lishe d for cisge nder patie nts and evalu ate in the clini vicente saranya xt of the indiv idual patie nt: https ://sahara damon book. nm.or g/gen derx Not Available [facility] (Lab) [address] [facility], [place], [address], 12/02/2024 05:08:50 12/02/19 25 12/01/2024 CMP(C OMPRE HENSI VE METAB OLIC PANEL ) sodium 141 mmol/ L 133-14 6 Not Available [facility] (Lab) [address] [facility], [place], [address], 12/02/2024 05:08:51 12/02/19 25 12/01/2024 CMP(C OMPRE HENSI VE METAB OLIC PANEL ) potassium 4.0 mmol/ L 3.5-5. 1 Not Available [facility] (Lab) [address] [facility], [place], [address], 12/02/2024 05:08:51 12/02/19 25 12/01/2024 CMP(C OMPRE HENSI VE METAB OLIC PANEL ) chloride 105 mmol/ L 98-107 Not Available [facility] (Lab) [address] [facility], [place], [address], 12/02/2024 05:08:51 12/02/19 25 12/01/2024 CMP(C OMPRE HENSI VE METAB OLIC PANEL ) carbon dioxide 26 mmol/ L 21-31 Not Available [facility] (Lab) [address] [facility], [place], [address], 12/02/2024 05:08:51 12/02/19 25 12/01/2024 CMP(C OMPRE HENSI VE METAB OLIC PANEL ) anion gap 10 mmol/ L 4-13 Not Available [facility] (Lab) [address] [facility], [place], [address], 12/02/2024 05:08:51 12/02/19 25 12/01/2024 CMP(C OMPRE HENSI VE METAB OLIC PANEL ) blood urea nitrogen 15 mg/dL 7-25 Not Available [facility] (Lab) [address] [facility], [place], [address], 12/02/2024 05:08:51 12/02/19 25 12/01/2024 CMP(C OMPRE HENSI VE METAB OLIC PANEL ) creatinine 0.87 mg/dL 0.60-1 .30 Not Available [facility] (Lab) [address] [facility], [place], [address], 12/02/2024 05:08:51 12/02/19 25 12/01/2024 CMP(C OMPRE HENSI VE METAB OLIC PANEL ) egfrcr (CKD-epi 2020) >90 mL/mi n/1.7 3_m2 >=60 Not Available [facility] (Lab) [address] [facility], [place], [address], 12/02/2024 05:08:51 12/02/19 25 12/01/2024 CMP(C OMPRE HENSI VE METAB OLIC PANEL ) calcium 9.9 mg/dL 8.3-10 .5 Not Available [facility] (Lab) [address] [facility], [place], [address], 12/02/2024 05:08:51 12/02/19 25 12/01/2024 CMP(C OMPRE HENSI VE METAB OLIC PANEL ) glucose 86 mg/dL 70-100 Not Available [facility] (Lab) [address] [facility], [place], [address], 12/02/2024 05:08:51 12/02/19 25 12/01/2024 CMP(C OMPRE HENSI VE METAB OLIC PANEL ) protein, total 6.9 g/dL 6.4-8. 3 Not Available [facility] (Lab) [address] [facility], [place], [address], 12/02/2024 05:08:51 12/02/19 25 12/01/2024 CMP(C OMPRE HENSI VE METAB OLIC PANEL ) albumin 4.4 g/dL 3.5-5. 0 Not Available [facility] (Lab) [address] [facility], [place], [address], 12/02/2024 05:08:51 12/02/19 25 12/01/2024 CMP(C OMPRE HENSI VE METAB OLIC PANEL ) ALT 28 units /L 9-43 Not Available [facility] (Lab) [address] [facility], [place], [address], 12/02/2024 05:08:51 12/02/19 25 12/01/2024 CMP(C OMPRE HENSI VE METAB OLIC PANEL ) alkaline phosphatase 90 units /L 34-104 Not Available [facility] (Lab) [address] [facility], [place], [address], 12/02/2024 05:08:51 10/21/20 25 12/01/2024 CMP(C OMPRE HENSI VE METAB OLIC PANEL ) AST 18 units /L 13-39 Not Available [facility] (Lab) [address], [place], [address], 12/02/2024 05:08:51 12/02/19 25 12/01/2024 CMP(C OMPRE HENSI VE METAB OLIC PANEL ) bilirubin, total 0.8 mg/dL 0.2-1. 2 Not Available [facility] (Lab) [address], [place], [address], 12/02/2024 05:08:51 12/02/1912/01/2024 elect tito diogr am No observ ation record ed. [address], [place], [address], 12/01/2024 20:29:35 12/03/1912/02/2024 [place], arjun tani teral No observ ation record ed. [address] [facility] [address], [place], [address], 12/02/2024 13:27:49 Result Notes None recorded. Problems Name Problem SNOMED Code Status Onset Date Resolution Date Notes Provider Name and Address Organization Details Recorded Time Cardiac arrhythm ia 291550603 Completed Metoprol ol in early pregnanc y, cardiolo gy f/u is pending EKG 01/2024 septal infarct check & monitor BP with appropri ate sized cuff check & record CBG when cardiac symptoms occur Divine zhou [facility] 5 18:13:22 Hyperten sive disorder 34570253 Completed BP logs at home per MFM , Cardiolo gist start pt 03/04 Labatelo l 100MG BID Schedule d antenata l testing [facility] [place] due to schedule except for 08/04/24 0900 US/BPP/N ST/Consu lt with [facility] Divine zhou [facility] 5 12:16:31 Hyperten sive disorder 87359015 Active BP logs at home per MFM , Cardiolo gist start pt 03/04 Labatelo l 100MG BID Schedule d antenata l testing [facility] [place] due to schedule except for 08/04/24 0900 US/BPP/N ST/Consu lt with [facility] Divine Bean abelardo, [facility] 5 12:16:31 Pregnanc y 00748729 Completed 202408/21/2024 Janet Humphrey null, [facility] 5 13:03:23 Pruritic disorder of skin Completed 2024 Ursodiol 300mg BID Bile acids 4 Rpt labs 06/19/24 bile acid 8 5 bile acid 6 Viri zhou, [facility] 5 11:13:08 Past pregnanc y history of pre-ecla mpsia 3961900600 Completed 2024 Viri zhou, [facility] 5 11:08:26 Glucose toleranc e test outside referenc e range 931918154 Completed 2024 check blood sugars Viri zhou, [facility] 5 11:08:47 Past pregnanc y history of pre-ecla mpsia 5177776781 Active 2024 Viri zhou, [facility] 5 11:08:26 Glucose toleranc e test outside referenc e range 128743530 Active 2024 check blood sugars Viri zhou, [facility] 5 11:08:47 Migraine with aura 4227303 Completed 2024 Patel Bruce MD [address], [place], [address], [facility] 11:26:45 Problem Notes None recorded. Procedures Surgical History Date Name Laterality Status Provider Name and Address Organization Details Recorded Time 07/22/19 24 Control Implant Removal completed EVER Garcia [address], [place], [address], [place] [facility] 07/22/2023 10:11:59 07/18/19 24 Date of Last Pap Smear completed Aylin Turpin [facility] 01/14/2024 11:25:43 02/11/19 22 angiography completed [facility] 06/27/2024 11:09:35 02/11/19 21 excision of cyst completed [facility] 06/27/2024 11:10:13 02/11/19 12 Tonsillectomy completed [facility] 06/27/2024 11:10:28 Imaging Results None recorded. Procedure Notes None recorded. Medical Equipment None Reported. Allergies Allergen ID Allergen Name Allergen Category Reaction Reaction Severity Criticality Documentation Date Start Date Code Code System Note Provider Name and Address Organization Details Recorded Time 85345 Penicilli n Not available hives moderate Not available 07/18/2023 22179 RxNorm Asya Jones abelardo, [facility] 4 10:16:14 Medications Name Sig Start Date Stop Date Status Note LastModified by Organization Details LastModified Time nifedipin e ER 30 mg tablet,ex tended release 24 hr TAKE 1 TABLET BY MOUTH EVERY DAY 09/22 completed Not Available Not Available Not Available buspirone 5 mg tablet TAKE 1 TABLET BY MOUTH TWICE DAILY active Not Available Not Available No t Available clindamyc in HCl 300 mg capsule TAKE 1 CAPSULE BY MOUTH TWICE DAILY FOR 7 DAYS 01/13 completed Not Available Not Available Not Available rizatript an 10 mg tablet TAKE 1 TABLET BY MOUTH EVERY DAY NEEDED 09/22 completed Not Available Not Available Not Available clindamyc in HCl 150 mg capsule TAKE 3 CAPSULES BY MOUTH THREE TIMES DAILY FOR 5 DAYS active Not Available Not Available No t Available Diflucan 150 mg tablet Take 1 tablet by oral route as directed for 1 day. 09/18 completed Not Available Not Available Not Available metoclopr amide 5 mg tablet Take 1 tablet every 6 hours by oral route as needed. 09/22 completed Not Available Not Available Not Available promethaz ine 25 mg tablet TAKE 1 TABLET BY MOUTH EVERY 4 HOURS 06/18 completed Not Available Not Available Not Available ursodiol 300 mg capsule TAKE 1 CAPSULE BY MOUTH TWICE DAILY DIRECTED 09/22 completed Not Available Not Available Not Available aspirin 81 mg chewable tablet CHEW AND SWALLOW 2 TABLETS BY MOUTH DAILY. 09/22 completed Not Available Not Available Not Available alcohol swabs USE 1 EACH FOUR TIMES DAILY 04/01 completed Not Available Not Available Not Available metoprolo l succinate ER 25 mg tablet,ex tended release 24 hr TAKE 1 TABLET BY MOUTH EVERY DAY 04/01 completed Not Available Not Available Not Available labetalol 100 mg tablet Take 1 tablet twice a day by oral route as directed for 30 days. 09/22 completed Prescrib ed by Cardiolo gist 03/04 based on BP logs at home per pt MFM is aware Not Available Not Available Not Available cefdinir 300 mg capsule 05/07 completed Not Available Not Available Not Available fluticaso ne propionat e 50 mcg/actua tion nasal spray,[employer] SHAKE LIQUID AND USE 1 SPRAY IN EACH NOSTRIL TWICE DAILY 01/13 completed Not Available Not Available Not Available metoclopr amide 10 mg tablet TAKE 1 TABLET BY MOUTH EVERY 6 HOURS NEEDED FOR HEADACHE 09/22 completed Not Available Not Available Not Available escitalop darrell 5 mg tablet TAKE 1 TABLET BY MOUTH EVERY DAY active Not Available Not Available No t Available nitrofura ntoin monohydra te/macroc rystals 100 mg capsule TAKE 1 CAPSULE BY MOUTH EVERY 12 HOURS FOR 7 DAYS 09/22 completed Not Available Not Available Not Available Fish Oil 06/27 completed Not Available Not Available Not Available OneTouch Verio test strips USE FOUR TIMES DAILY DIRECTED 04/01 completed Not Available Not Available Not Available Classic active Not Available Not Available Not Available Fioricet 50 mg-300 mg-40 mg capsule Take 1 capsule every 4 hours by oral route. 07/30 completed Not Available Not Available Not Available Unisom (diphenhy dramine) 09/22 completed Not Available Not Available Not Available OneTouch Verio Flex Meter TEST DIRECTED 04/01 completed Not Available Not Available Not Available OneTouch Delica Plus Lancet 33 gauge USE 1 LANCET FOUR TIMES DAILY 04/01 completed Not Available Not Available Not Available Vitals Date Recorded Body height Body mass index (BMI) Body weight Systolic And Diastolic Provider Name and Address Organization Details Last Updated DateTime 12/01/2024 157.48 cm 34 kg/m2 14820.18 g 135/79 mm[Hg] Aylin Turpin [facility] 12/01/2024 10:03:05 Social History Question Answer Notes LastModified by Organizat ion Details LastModified Time Tobacco Smoking Status Never Smoker Asya Robert zhou, [facility] 07/18/2023 10:18:55 Do You Have An Advance Directive? No Information n ot available 01/14/2024 If You Are , What Was Your Level Of Alcohol Consumption Prior To ? Occasional [email or web address] Information not available 06/27/2024 How Many Years Have You Consumed Alcohol? 6 Information not available 01/14/2024 Are You Blind Or Do You Have Difficulty Seeing? No Information n ot available 07/18/2023 What Is Your Level Of Caffeine Consumption? Occasional Information not available 07/18/2023 How Much Tobacco Do You Chew? None Information not available 07/18/2023 In The 14 Days Before Symptom Onset, Have You Had Close Contact With A Laboratory-confirm ed COVID-19 While That Case Was Ill? No Information n ot available 07/18/2023 In The 14 Days Before Symptom Onset, Have You Had Close Contact With A Person Who Is Under Investigation For COVID-19 While That Person Was Ill? No Information not available 07/18/2023 Have You Been To An Area Known To Be High Risk For COVID-19? No Information not available 07/18/2023 Are You Deaf Or Do You Have Serious Difficulty Hearing? No Information not available 07/18/2023 What Type Of Diet Are You Following? REGULAR Information n ot available 07/18/2023 What Is The Highest Grade Or Level Of School You Have Completed Or The Highest Degree You Have Received? [id number] Information not available 07/18/2023 Are There Any Guns Present In Your Home? Yes Information not available 07/18/2023 Do You Use Protection During Sex? No Information not available 07/18/2023 Do You Use Your Seat Belt Or Car Seat Routinely? Yes Information not available 07/18/2023 Do You Have Smoke And Carbon Monoxide Detectors In Your Home? Yes Information not available 07/18/2023 How Much Tobacco Do You Smoke? No Information not available 07/18/2023 Do You Use Sunscreen Routinely? No Information not available 07/18/2023 Have You Used IV Drugs? No Information not available 07/18/2023 Do You Have Difficulty Walking Or Climbing Stairs? No [email or web address] Information not available 06/27/2024 Sex: Unknown Functional Status Question Answer Note LastModified by Organizat ion Details LastModified Time Do you use any illicit or recreational drugs? No Information not available 07/18/2023 What is your level of alcohol consumption? None [email or web address] Information not available 06/27/2024 Are you able to walk independently without assistance or assistive devices? [email or web address] Information not available 07/18/2023 Are you able to care for yourself independently? 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 No [email or web address] Information not available 06/27/2024 What is your exercise level? Moderate Information not available 07/18/2023 Mental Status Question Answer Note LastModified by Organization D etails LastModified Time Do you feel stressed (tense, restless, nervous, or anxious, or unable to sleep at night)? [id number] [email or web address] Information not available 07/18/2023 Family History Relationship Description Onset Age of this Age Resolved Age Notes LastModified by Organization Details LastModified Time Unspecified Relation Family history unknown [email or web address] Not available 11/12 09:54:58 Mother Malignant neoplasm of ovary arun Not available 2023 11:12:33 Sister Malignant neoplasm of ovary [email or web address] Not available 2023 11:12:39 Medical History Condition Response Allergies (Food, seasonal, environmental ) N Other N Breast Cancer N Drug/Latex Allergies/Reactions Y Blood Transfusion N Dermatologic Disorders N Lung Disease N Defects or Inherited Disease N Breast Problem N Gestational Diabetes N Hematologic disorders N Anesthesia Complications N History of STI N Deep Vein Thrombosis N Polycystic ovary syndrome N Anxiety Disorder N Autoimmune disease N Arthritis N Infertility N Polyps N Acid Reflux (GERD) Y History of abnormal pap N Cancer N Stroke N Varicosities N Neurologic/Epilepsy N Endometriosis N High Cholesterol N Headaches N Fibromyalgia N Kidney Disease N Heart Problems N Kidney or Bladder Problems N Thyroid Problems N GI Problems N Eating Disorder N Anemia N Art (IVF or FET) N Psychiatric Illness N Ovarian Cancer N Diabetes N Pulmonary (TB, Asthma) N Hepatitis/Liver Disease N No Past Medical History N Eczema N Urinary Tract Infection N Abuse/Domestic Violence N Asthma N Trauma/Violence N Depression/ depression N Heart Disease N Pre-Eclampsia Y Hypertension Y Osteoporosis N Thrombophilias N Gynecological History Statement/Question Response Date of Last Mammogram Flow Moderate Date of LMP 11/15/2023 N Was last menstrual period normal Y STIs/STDs N Date of control 10/19/2019 Date of Last Colonoscopy None Desired Control Method None Abnormal Pap N On BCP's at Conception? N Colposcopy HPV Vaccine Y Duration of Flow (days) 4 Current Control Method Breastfeedi ng/CARRANZA Age at First Child 19 Are cycles usually normal N Frequency of Cycle (Q days) Sexually Active? Y Menses Monthly N Date of DEXA bone scan Age of first menstrual cycle 11 Date of Last Pap Smear 07/18/2023 Sexual Problems? N LMP Definite N 11/23/2021 Obstetrics History GPAL:G 3 P 2 0 1 1 Type Value Full Term 2 Spontaneous 1 Living 1 Total 3 Past Encounters Encounter ID Performer Location Encounter Start Date Encounter Closed Date Diagnosis/Indication Diagnosis SNOMED-CT Code Diagnosis ICD10 Code Diagnosis IMO Codes Diagnosis Note [id number] Patel Bruce MD [place] [address] [address] 12/01/2024 09:54:53 12/01/2024 10:40:54 Dyspnea 376324616 R06.02 39673 Inflammato ry disorder of breast 759725531 N61.0 54974 Malaise and fatigue 2717 14479 R53.81 R53.83 [id number] This patient is a 24-year-ol d female who is 4 months . She reports being seen for mastitis 2 days ago. She was started on clindamyci n. The tenderness of her breasts has improved, but the redness has spread across the breasts. She reports some fatigue and shortness of breath. she has had some difficulty staying hydrated. Her urine appears abnormal to her. We checked her urine. It is not suggestive of urinary tract infection. We agreed to obtain a ultrasound of the breast to rule out abscess. We are going to obtain an EKG at the hospital also. She was given strict precaution s to report any worsening shortness of breath or if it persisted. We are going to check her CBC and her CMP here today. We will consider admission for observatio n if there are unusual findings and our testing. Spent over 30 minutes on her care in total. Health Concerns Section Related Observation LastModified by Organization Detai ls LastModified Time None Recorded Concern Status LastModified by Organization Details LastModified Time None Recorded Payers Encounter Date Sequence Insurance Name Policy Number Policy Gray Covered Member ID Gray Member ID Guarantor Name 12/01/2024 1 [facility] (MEDICAID HMO) [id number] Raya Amcho [id number] Nikjohn Asia Pritchard Notes Date Note Type Note Provider Name and Address Organization Details Recorded Time 12/01/2024 text/html This patient is a 24-year-old female who is 4 months . She reports being seen for mastitis 2 days ago. She was started on clindamycin. The tenderness of her breasts has improved, but the redness has spread across the breasts. She reports some fatigue and shortness of breath. she has had some difficulty staying hydrated. Her urine appears abnormal to her. We checked her urine. It is not suggestive of urinary tract infection. We agreed to obtain a ultrasound of the breast to rule out abscess. We are going to obtain an EKG at the hospital also. She was given strict precautions to report any worsening shortness of breath or if it persisted. We are going to check her CBC and her CMP here today. We will consider admission for observation if there are unusual findings and our testing. Spent over 30 minutes on her care in total. Patel Bruce MD [address], [place], [id number], [facility] 12/01/2024 10:38:32 OBGyn Episode No OBEpisode recorded.
--- OUTSIDE RECORDS SUMMARY | 2024-12-02 12:35 | XMS_ITS | Clinical Summary ---
Author Organization [facility] Address [address] [place] [address] Care Team Providers Care Still Operator Helper Name Role Phone Unavailable Primary Care Provider Unavailabl e Source Comments [facility],non-owned Affiliates and Associated Physician Practices is amultiple site organization consisting of ambulatory clinics and hospital sitesin [place], [place], [place]. This disclosure is being madepursuant to the Care Everywhere program and may not contain all information available regarding this patient. Last updated 17.[facility] [employer] Allergies Active Allergy Reactions Criticality Noted Date [...] daily Reasons: Nausea and Vomiting in Active aspirin (Aspirin) 81 MG chew tabletIndication [...] capsule by mouth 2 times daily Active metoclopramide (Reglan) 10 MG tablet Take 1 (one) tablet by mouth every 6 hours Active diphenhydrAMINE (Benadryl) 25 MG tablet Take 1 (one) tablet by mouth every 6 hours as needed for Itching Active Active Problems Problem Noted Date Diagnosed Date Benign essential hypertension, antepartum 2024 Hx of preeclampsia, prior , currently p regnant 04/15/2024 Encounter for anatomic survey 04/15/2024 Family History Relation Name Status Comments Brother 1 Alive Brother 2 Alive Father Alive Mother Alive Sister 1 Alive Sister 2 Alive Social History Tobacco Use Types Packs/Day Years Used Date Smoking Tobacco: Never Smokeless Tobacco: Never Tobacco Cessation:Counseling Given: Not Answered Alcohol Use Standard Drinks/Week Comments Not Currently 0 (1 standard drink = 0.6 oz pur e alcohol) Comments No Sex and Gender Information Value Date Recorded Sex Assigned at Not on file Legal Sex Female 1:03 PM [employer] Gender Identity Not on file Sexual Orientation Not on file Last Filed Vital Signs Vital Sign Reading Time Taken Comments Blood Pressure 131/74 08/04/2024 9:29 AM CDT Pulse 86 08/04/2024 9:29 AM CDT Temperature - - Respiratory Rate - - Oxygen Saturation - - Inhaled Oxygen Concentration - - Weight 88.5 kg (195 lb) 08/04/2024 9:29 AM CDT Height 157.5 cm (5' 2) 05/13/2024 11:05 AM CDT Body Mass Index 35.67 05/13/2024 11:05 AM CDT Plan of Treatment Health Maintenance Due Date Last Done Comments HPV VACCINE (1 - 3-dose series) 2013 HEPATITIS C SCREENING 01/27/2016 DTAP/TDAP/TD VACCINES (1 - Tdap) 2017 HEPATITIS B VACCINE (1 of 3 - 19+ 3-dose series) 2017 PAP SMEAR 2019 DEPRESSION SCREENING 02/12/2024 COVID-19 VACCINE (1 - 2023-2 5 season) 2024 INFLUENZA VACCINE (#1) 2024 ZOSTER VACCINE (1 of 2) 02/01/2048 [...] patient's age to complete this topic Insurance [id number] [place] [address]
--- OUTSIDE RECORDS SUMMARY | 2024-12-02 12:35 | XMS_ITS | Data Portability ---
Author Organization [facility] Address [address] [place] [address] [place] [address] Care Team Providers Care Speech Coach Name Role Phone ALFREDO CHRISTOPHER Primary Care Provider Assessment No assessment recorded. Plan of Treatment Reminders Order Date Submit Date Provider Last Modified By Organization Details Last Modified Time Details Appointments None recorded. Lab CBC w/ auto diff 2024 025 [facility] (Lab), [address] [place], [address], 5 10:35:43 CMP, serum or plasma 2024 025 [facility] (Lab), [address] [facility], [place], [address], 5 10:35:42 urinalysis , dipstick [address], [facility] [address], [place], [address], 13:03:05 Referral None recorded. Procedures None recorded. Surgeries None recorded. Imaging None recorded. Medication Orders None recorded. Patient TargetsNo targets recorded. Patient InstructionsNo instructions recorded. Reason for Referral None Reported. Results Created Date Observation Date Name Description Value Unit Range Abnormal Flag Note LastModifiedBy Organization Detail LastModifiedTime 07/15/19 25 07/14/2024 BILE ACIDS , TOTAL bile acids, total 6 umol/ L 0-10 Test Perfo rmed by: Donal mendoza [address] [address] Not Available [facility] (Lab) [address] [facility], [place], [address], 07/15/2024 10:54:21 07/22/19 25 07/21/2024 CMP(C OMPRE HENSI VE METAB OLIC PANEL ) sodium 141 mmol/ L 133-14 6 Not Available [facility] (Lab) [address] [facility], [place], [address], 07/22/2024 10:42:28 07/22/19 25 07/21/2024 CMP(C OMPRE HENSI VE METAB OLIC PANEL ) potassium 4.0 mmol/ L 3.5-5. 1 Not Available [facility] (Lab) [address] [facility], [place], [address], 07/22/2024 10:42:28 07/22/19 25 07/21/2024 CMP(C OMPRE HENSI VE METAB OLIC PANEL ) chloride 107 mmol/ L 98-107 Not Available [facility] (Lab) [address] [facility], [place], [address], 07/22/2024 10:42:28 07/22/19 25 07/21/2024 CMP(C OMPRE HENSI VE METAB OLIC PANEL ) carbon dioxide 22 mmol/ L 21-31 Not Available [facility] (Lab) [address] [place], [address], 07/22/2024 10:42:28 07/22/19 25 07/21/2024 CMP(C OMPRE HENSI VE METAB OLIC PANEL ) anion gap 12 mmol/ L 4-13 Not Available [facility] (Lab) [address] [place], [address], 07/22/2024 10:42:28 07/22/19 25 07/21/2024 CMP(C OMPRE HENSI VE METAB OLIC PANEL ) blood urea nitrogen 6 mg/dL 7-25 low Not Available [facility] (Lab) [address] [facility], [place], [address], 07/22/2024 10:42:28 07/22/1907/21/2024 CMP(C OMPRE HENSI VE METAB OLIC PANEL ) creatinine 0.60 mg/dL 0.60-1 .30 Not Available [facility] (Lab) [address] [facility], [place], [address], 07/22/2024 10:42:28 07/22/19 25 07/21/2024 CMP(C OMPRE HENSI VE METAB OLIC PANEL ) egfrcr (CKD-epi 2020) >90 mL/mi n/1.7 3_m2 >=60 Not Available [facility] (Lab) [address] [facility], [place], [address], 07/22/2024 10:42:28 07/22/19 25 07/21/2024 CMP(C OMPRE HENSI VE METAB OLIC PANEL ) calcium 9.3 mg/dL 8.3-10 .5 Not Available [facility] (Lab) [address] [facility], [place], [address], 07/22/2024 10:42:28 07/22/19 25 07/21/2024 CMP(C OMPRE HENSI VE METAB OLIC PANEL ) glucose 90 mg/dL 70-100 Not Available [facility] (Lab) [address] [facility], [place], [address], 07/22/2024 10:42:28 07/22/1907/21/2024 CMP(C OMPRE HENSI VE METAB OLIC PANEL ) protein, total 5.5 g/dL 6.4-8. 3 low Not Available [facility] (Lab) [address] [facility], [place], [address], 07/22/2024 10:42:28 07/22/19 25 07/21/2024 CMP(C OMPRE HENSI VE METAB OLIC PANEL ) albumin 3.5 g/dL 3.5-5. 0 Not Available [facility] (Lab) [address] [facility], [place], [address], 07/22/2024 10:42:28 07/22/19 25 07/21/2024 CMP(C OMPRE HENSI VE METAB OLIC PANEL ) ALT 9 units /L 9-43 Not Available [facility] (Lab) [address] [facility], [place], [address], 07/22/2024 10:42:28 07/22/19 25 07/21/2024 CMP(C OMPRE HENSI VE METAB OLIC PANEL ) alkaline phosphatase 103 units /L 34-104 Not Available [facility] (Lab) [address] [facility], [place], [address], 07/22/2024 10:42:28 07/22/19 25 07/21/2024 CMP(C OMPRE HENSI VE METAB OLIC PANEL ) AST 9 units /L 13-39 low Not Available [facility] (Lab) [address] [facility], [place], [address], 07/22/2024 10:42:28 07/22/19 25 07/21/2024 CMP(C OMPRE HENSI VE METAB OLIC PANEL ) bilirubin, total 0.5 mg/dL 0.2-1. 2 Not Available [facility] (Lab) [address] [facility], [place], [address], 07/22/2024 10:42:28 07/22/19 25 07/21/2024 BILE ACIDS , TOTAL bile acids, total 4 umol/ L 0-10 Test Perfo rmed by: [facility]onal [facility] [address] [address] Not Available [facility] (Lab) [address] [facility], [place], [address], 07/22/2024 10:42:28 07/29/19 25 07/28/2024 CMP/C BC/UR IC ACID WBC 7.3 10'3/ uL 3.5-10 .5 Not Available [facility] (Lab) [address], [place], [address], 07/30/2024 09:54:25 07/29/1907/28/2024 CMP/C BC/UR IC ACID RBC 4.10 10'6/ uL (based on docume nted legal sex) 3.80-5 .20 Not Available [facility] (Lab) [address], [place], [address], 07/30/2024 09:54:25 07/29/1907/28/2024 CMP/C BC/UR IC ACID HGB 12.7 g/dL (based on docume nted legal sex) 11.6-1 5.4 Not Available [facility] (Lab) [address] [facility], [place], [address], 07/30/2024 09:54:25 07/29/1907/28/2024 CMP/C BC/UR IC ACID HCT 38.3 % (based on docume nted legal sex) 34.0-4 5.0 Not Available [facility] (Lab) [address] [facility], [place], [address], 07/30/2024 09:54:25 07/29/1907/28/2024 CMP/C BC/UR IC ACID MCV 93.4 fL 80.0-9 9.0 Not Available [facility] (Lab) [address] [place], [address], 07/30/2024 09:54:25 07/29/1907/28/2024 CMP/C BC/UR IC ACID MCH 31.0 pg 27.0-3 4.0 Not Available [facility] (Lab) [address] [place], [address], 07/30/2024 09:54:25 07/29/1907/28/2024 CMP/C BC/UR IC ACID MCHC 33.2 g/dL 32.0-3 5.5 Not Available [facility] (Lab) [address] [facility], [place], [address], 07/30/2024 09:54:25 07/29/1907/28/2024 CMP/C BC/UR IC ACID RDW 13.2 % 11.0-1 5.0 Not Available [facility] (Lab) [address] [facility], [place], [address], 07/30/2024 09:54:25 07/29/1907/28/2024 CMP/C BC/UR IC ACID plt 326 10'3/ uL 150-40 0 Not Available [facility] (Lab) [address] [facility], [place], [address], 07/30/2024 09:54:25 07/29/1907/28/2024 CMP/C BC/UR IC ACID MPV 9.6 fL 8.8-12 .1 Not Available [facility] (Lab) [address] [facility], [place], [address], 07/30/2024 09:54:25 07/29/1907/28/2024 CMP/C BC/UR IC ACID NRBC's 0.0 % 0.0 Not Available [facility] (Lab) [address] [facility], [place], [address], 07/30/2024 09:54:25 07/29/1907/28/2024 CMP/C BC/UR IC ACID absolute NRBCs 0.0 10'3/ uL no refere nce range establ ished Not Available [facility] (Lab) [address] [facility], [place], [address], 07/30/2024 09:54:25 07/29/1907/28/2024 CMP/C BC/UR IC ACID neutrophils 77.1 % 34.0-7 3.0 high Not Available [facility] (Lab) [address] [place], [address], 07/30/2024 09:54:25 07/29/1907/28/2024 CMP/C BC/UR IC ACID lymphocytes 15.0 % 15.0-5 0.0 Not Available [facility] (Lab) [address] [place], [address], 07/30/2024 09:54:25 07/29/1907/28/2024 CMP/C BC/UR IC ACID monocytes 7.1 % 1.0-15 .0 Not Available [facility] (Lab) [address] [facility], [place], [address], 07/30/2024 09:54:25 07/29/1907/28/2024 CMP/C BC/UR IC ACID eosinophils 0.4 % 0.0-8. 0 Not Available [facility] (Lab) [address] [facility], [place], [address], 07/30/2024 09:54:25 07/29/1907/28/2024 CMP/C BC/UR IC ACID basophils 0.3 % 0.0-2. 0 Not Available [facility] (Lab) [address] [facility], [place], [address], 07/30/2024 09:54:25 07/29/1907/28/2024 CMP/C BC/UR IC ACID immature granulocytes 0.1 % no define d refere nce range Immat ure Granu locyt es (IG) repre sents autom ated enume ratio n of Metam yeloc ytes, Myelo cytes and Promy elocy cesilia when IG is < 5%. Blast s are not inclu ded in IG and repor diallo separ ately if prese nt. Not Available [facility] (Lab) [address] [facility], [place], [address], 07/30/2024 09:54:25 07/29/1907/28/2024 CMP/C BC/UR IC ACID absolute neutrophils 5.6 10'3/ uL 1.5-8. 0 Not Available [facility] (Lab) [address] [place], [address], 07/30/2024 09:54:25 07/29/1907/28/2024 CMP/C BC/UR IC ACID absolute lymphocytes 1.1 10'3/ uL 1.0-4. 0 Not Available [facility] (Lab) [address] [facility], [place], [address], 07/30/2024 09:54:25 07/29/1907/28/2024 CMP/C BC/UR IC ACID absolute monocytes 0.5 10'3/ uL 0.2-1. 0 Not Available [facility] (Lab) [address] [facility], [place], [address], 07/30/2024 09:54:25 07/29/1907/28/2024 CMP/C BC/UR IC ACID absolute eosinophils 0.0 10'3/ uL 0.0-0. 6 Not Available [facility] (Lab) [address] [facility], [place], [address], 07/30/2024 09:54:25 07/29/1907/28/2024 CMP/C BC/UR IC ACID absolute basophils 0.0 10'3/ uL 0.0-0. 3 Not Available [facility] (Lab) [address] [facility], [place], [address], 07/30/2024 09:54:25 07/29/1907/28/2024 CMP/C BC/UR IC ACID absolute immature granulocytes 0.0 10'3/ uL 0.00-0 .10 Refer ence range s for nonbi nary/ inter sex or unspe cifie d gende r patie nts have not been estab lishe d. Zeeshan e refer to the kristiano wing table for range s estab lishe d for cisge nder patie nts and evalu ate in the clini vicente saranya xt of the indiv idual patie nt: https ://sahara damon book. nm.or g/gen derx Not Available [facility] (Lab) [address] [facility], [place], [address], 07/30/2024 09:54:25 07/29/19 25 07/28/2024 CMP/C BC/UR IC ACID uric acid 5.4 mg/dL 2.3-6. 6 Not Available [facility] (Lab) [address] [facility], [place], [address], 07/30/2024 09:54:25 07/29/19 25 07/28/2024 CMP/C BC/UR IC ACID sodium 139 mmol/ L 133-14 6 Not Available [facility] (Lab) [address] [facility], [place], [address], 07/30/2024 09:54:25 07/29/19 25 07/28/2024 CMP/C BC/UR IC ACID potassium 3.9 mmol/ L 3.5-5. 1 Not Available [facility] (Lab) [address] [facility], [place], [address], 07/30/2024 09:54:25 07/29/19 25 07/28/2024 CMP/C BC/UR IC ACID chloride 107 mmol/ L 98-107 Not Available [facility] (Lab) [address] [place], [address], 07/30/2024 09:54:25 07/29/19 25 07/28/2024 CMP/C BC/UR IC ACID carbon dioxide 24 mmol/ L 21-31 Not Available [facility] (Lab) [address] [facility], [place], [address], 07/30/2024 09:54:25 07/29/19 25 07/28/2024 CMP/C BC/UR IC ACID anion gap 8 mmol/ L 4-13 Not Available [facility] (Lab) [address] [place], [address], 07/30/2024 09:54:25 07/29/19 25 07/28/2024 CMP/C BC/UR IC ACID blood urea nitrogen 7 mg/dL 7-25 Not Available [facility] (Lab) [address], [place], [address], 07/30/2024 09:54:25 07/29/1907/28/2024 CMP/C BC/UR IC ACID creatinine 0.65 mg/dL 0.60-1 .30 Not Available [facility] (Lab) [address] [facility], [place], [address], 07/30/2024 09:54:25 07/29/1907/28/2024 CMP/C BC/UR IC ACID egfrcr (CKD-epi 2020) >90 mL/mi n/1.7 3_m2 >=60 Not Available [facility] (Lab) [address], [place], [address], 07/30/2024 09:54:25 07/29/1907/28/2024 CMP/C BC/UR IC ACID calcium 9.2 mg/dL 8.3-10 .5 Not Available [facility] (Lab) [address] [facility], [place], [address], 07/30/2024 09:54:25 07/29/1907/28/2024 CMP/C BC/UR IC ACID glucose 111 mg/dL 70-100 high Not Available [facility] (Lab) [address] [place], [address], 07/30/2024 09:54:25 07/29/1907/28/2024 CMP/C BC/UR IC ACID protein, total 5.5 g/dL 6.4-8. 3 low Not Available [facility] (Lab) [address] [place], [address], 07/30/2024 09:54:25 07/29/1907/28/2024 CMP/C BC/UR IC ACID albumin 3.4 g/dL 3.5-5. 0 low Not Available [facility] (Lab) [address] [place], [address], 07/30/2024 09:54:25 07/29/19 25 07/28/2024 CMP/C BC/UR IC ACID ALT 8 units /L 9-43 low Not Available [facility] (Lab) [address] [facility], [place], [address], 07/30/2024 09:54:25 07/29/19 25 07/28/2024 CMP/C BC/UR IC ACID alkaline phosphatase 113 units /L 34-104 high Not Available [facility] (Lab) [address] [facility], [place], [address], 07/30/2024 09:54:25 07/29/19 25 07/28/2024 CMP/C BC/UR IC ACID AST 11 units /L 13-39 low Not Available [facility] (Lab) [address] [facility], [place], [address], 07/30/2024 09:54:25 07/29/19 25 07/28/2024 CMP/C BC/UR IC ACID bilirubin, total 0.4 mg/dL 0.2-1. 2 Not Available [facility] (Lab) [address] [facility], [place], [address], 07/30/2024 09:54:25 07/29/19 25 07/28/2024 PROTE IN/CR EATIN INE RATIO , URINE creatinine, urine 35.1 mg/dL R-No refer ence range estab lishe d for this assay Not Available [facility] (Lab) [address] [place], [address], 07/30/2024 09:54:25 07/29/19 25 07/28/2024 PROTE IN/CR EATIN INE RATIO , URINE protein, urine 7 mg/dL R-No refer ence range estab lishe d for this assay Not Available [facility] (Lab) [address] [place], [address], 07/30/2024 09:54:25 07/29/19 25 07/28/2024 PROTE IN/CR EATIN INE RATIO , URINE protein/crea tinine ratio, urine 0.20 . No Refer ence Range avail able for Rando m Urine s. A prote in to creat inine ratio of >=0.1 9 is a good predi ctor of signi fican t prote inuri a. A level of <0.14 can rule out signi fican t prote inuri a. Not Available [facility] (Lab) [address] [facility], [place], [address], 07/30/2024 09:54:25 07/29/1907/28/2024 LEAD, BLOOD (ADUL T/PED IATRI C) lead, whole blood <1.0 mcg/d L <3.5 See Note 1 Shawanda sis was perfo rmed by Tay Pruitt ed Plasm a Mass Spect romet ry (ICPM S) Note 1 This test was devel oped and its shawanda tical perfo rmanc e kelsi cteri stics have been deter mined by [facility]. It has not been clear ed or appro lindsey by the FDA. This assay has been valid ated pursu ant to the CLIA regul ation s and is used for clini vicente purpo ses. Perfo rming Organ izati on Infor erikparesh n: Site ID: CB Name: Moxie Jean ostic s-Nathaniel duenas Bj Addre ss: [address] [place], [place] [id number] Direc tor: Deni ny V Suzanna s Not Available [facility] (Lab) [address] [facility], [place], [address], 07/30/2024 09:54:26 08/07/1908/06/2024 CULTU RE: GROUP B STREP SCREE N, REFLE X SUSCE PTIBI LITY result report SEE RESULT S BELOW Test: Cultu re: Group B Strep , Refle x Susce ptibi lity ([facility]/ [facility] ) Speci men Sourc e: Vagin a/Rec madiha Speci men Type: Vagin al/Re ctal Speci men Date: 2024 1619 Resul t Date: 2024 1359 Resul t Statu s: Final resul t Abnor mal: No Resul ting Lab: [facility] [address] [facility] [address] Tel: CULTU RE ----- ----- ----- --- No Group B strep isola diallo at 2 days (kortney ctive broth john cemsteve t) Not Available [facility] (Lab) [address], [place], [address], 08/09/2024 15:02:14 08/22/1908/21/2024 CBC W/DIF F WBC 5.2 10'3/ uL 3.5-10 .5 Not Available [facility] (Lab) [address] [facility], [place], [address], 08/22/2024 05:58:58 08/22/19 25 08/21/2024 CBC W/DIF F RBC 4.58 10'6/ uL (based on docume nted legal sex) 3.80-5 .20 Not Available [facility] (Lab) [address] [facility], [place], [address], 08/22/2024 05:58:58 08/22/19 25 08/21/2024 CBC W/DIF F HGB 14.2 g/dL (based on docume nted legal sex) 11.6-1 5.4 Not Available [facility] (Lab) [address] [place], [address], 08/22/2024 05:58:58 08/22/19 25 08/21/2024 CBC W/DIF F HCT 42.7 % (based on docume nted legal sex) 34.0-4 5.0 Not Available [facility] (Lab) [address], [place], [address], 08/22/2024 05:58:58 08/22/19 25 08/21/2024 CBC W/DIF F MCV 93.2 fL 80.0-9 9.0 Not Available [facility] (Lab) [address] [facility], [place], [address], 08/22/2024 05:58:58 08/22/19 25 08/21/2024 CBC W/DIF F MCH 31.0 pg 27.0-3 4.0 Not Available [facility] (Lab) [address] [facility], [place], [address], 08/22/2024 05:58:58 08/22/19 25 08/21/2024 CBC W/DIF F MCHC 33.3 g/dL 32.0-3 5.5 Not Available [facility] (Lab) [address] [facility], [place], [address], 08/22/2024 05:58:58 08/22/19 25 08/21/2024 CBC W/DIF F RDW 12.5 % 11.0-1 5.0 Not Available [facility] (Lab) [address] [facility], [place], [address], 08/22/2024 05:58:58 08/22/19 25 08/21/2024 CBC W/DIF F plt 364 10'3/ uL 150-40 0 Not Available [facility] (Lab) [address] [facility], [place], [address], 08/22/2024 05:58:58 08/22/19 25 08/21/2024 CBC W/DIF F MPV 9.7 fL 8.8-12 .1 Not Available [facility] (Lab) [address] [facility], [place], [address], 08/22/2024 05:58:58 08/22/19 25 08/21/2024 CBC W/DIF F NRBC's 0.0 % 0.0 Not Available [facility] (Lab) [address] [place], [address], 08/22/2024 05:58:58 08/22/19 25 08/21/2024 CBC W/DIF F absolute NRBCs 0.0 10'3/ uL no refere nce range establ ished Not Available [facility] (Lab) [address] [facility], [place], [address], 08/22/2024 05:58:58 08/22/19 25 08/21/2024 CBC W/DIF F neutrophils 59.1 % 34.0-7 3.0 Not Available [facility] (Lab) [address] [facility], [place], [address], 08/22/2024 05:58:58 08/22/19 25 08/21/2024 CBC W/DIF F lymphocytes 32.7 % 15.0-5 0.0 Not Available [facility] (Lab) [address] [facility], [place], [address], 08/22/2024 05:58:58 08/22/19 25 08/21/2024 CBC W/DIF F monocytes 6.2 % 1.0-15 .0 Not Available [facility] (Lab) [address] [facility], [place], [address], 08/22/2024 05:58:58 08/22/19 25 08/21/2024 CBC W/DIF F eosinophils 1.2 % 0.0-8. 0 Not Available [facility] (Lab) [address] [facility], [place], [address], 08/22/2024 05:58:58 08/22/19 25 08/21/2024 CBC W/DIF F basophils 0.6 % 0.0-2. 0 Not Available [facility] (Lab) [address] [facility], [place], [address], 08/22/2024 05:58:58 08/22/19 25 08/21/2024 CBC W/DIF F immature granulocytes 0.2 % no define d refere nce range Immat ure Granu locyt es (IG) repre sents autom ated enume ratio n of Metam yeloc ytes, Myelo cytes and Promy elocy cesilia when IG is < 5%. Blast s are not inclu ded in IG and repor diallo separ ately if prese nt. Not Available [facility] (Lab) [address] [facility], [place], [address], 08/22/2024 05:58:58 08/22/19 25 08/21/2024 CBC W/DIF F absolute neutrophils 3.1 10'3/ uL 1.5-8. 0 Not Available [facility] (Lab) [address] [facility], [place], [address], 08/22/2024 05:58:58 08/22/19 25 08/21/2024 CBC W/DIF F absolute lymphocytes 1.7 10'3/ uL 1.0-4. 0 Not Available [facility] (Lab) [address] [facility], [place], [address], 08/22/2024 05:58:58 08/22/19 25 08/21/2024 CBC W/DIF F absolute monocytes 0.3 10'3/ uL 0.2-1. 0 Not Available [facility] (Lab) [address] [facility], [place], [address], 08/22/2024 05:58:58 08/22/19 25 08/21/2024 CBC W/DIF F absolute eosinophils 0.1 10'3/ uL 0.0-0. 6 Not Available [facility] (Lab) [address] [facility], [place], [address], 08/22/2024 05:58:58 08/22/19 25 08/21/2024 CBC W/DIF F absolute basophils 0.0 10'3/ uL 0.0-0. 3 Not Available [facility] (Lab) [address] [facility], [place], [address], 08/22/2024 05:58:58 08/22/1908/21/2024 CBC W/DIF F absolute immature granulocytes 0.0 10'3/ uL 0.00-0 .10 Refer ence range s for nonbi nary/ inter sex or unspe cifie d gende r patie nts have not been estab lishe d. Zeeshan e refer to the follo wing table for range s estab lishe d for cisge nder patie nts and evalu ate in the clini vicente saranya xt of the indiv idual patie nt: https ://sahara damon book. nm.or g/gen derx Not Available [facility] (Lab) [address], [place], [address], 08/22/2024 05:58:58 09/05/19 25 09/04/2024 urina lysis , dipst ick Leukocytes TRACE Not [facility] [address], [place], [address], 09/04/2024 13:01:44 09/05/1909/04/2024 urina lysis , dipst ick Nitrite negati ve Not Available [address], [place], [address], 09/04/2024 13:01:44 09/05/19 25 09/04/2024 urina lysis , dipst ick Urobilinogen normal Not Available [facility] [address], [place], [address], 09/04/2024 13:01:44 09/05/1909/04/2024 urina lysis , dipst ick Protein trace Not Available [address], [place], [address], 09/04/2024 13:01:44 09/05/1909/04/2024 urina lysis , dipst ick Blood + Not Available [address], [place], [address], 09/04/2024 13:01:44 09/05/19 25 09/04/2024 urina lysis , dipst ick Specific [place] [address] [facility] [address], [place], [address], 09/04/2024 13:01:44 09/05/19 25 09/04/2024 urina lysis , dipst ick Bilirubin negati ve Not Available [address], [place], [address], 09/04/2024 13:01:44 09/05/19 25 09/04/2024 urina lysis , dipst ick Glucose normal Not Available [address], [place], [address], 09/04/2024 13:01:44 07/15/19 25 07/14/2024 US, obste tric, bioph ysica l profi le + non-s tress test No observ ation record ed. [email or web address], [place], [address], 07/14/2024 12:47:18 07/15/19 25 07/14/2024 US, obste tric, bioph ysica l profi le + non-s tress test No observ ation record ed. [email or web address], [facility], [place], [address], 07/15/2024 13:37:41 07/16/19 25 07/15/2024 non-s tress test No observ ation record ed. [email or web address], [place], [address], 07/15/2024 16:01:48 07/21/19 non-s tress test No observ ation record ed. [email or web address], [place], [address], 07/20/2024 09:43:47 07/22/19 25 07/21/2024 US, obste tric, bioph ysica l profi le + non-s tress test No observ ation record ed. [email or web address], [place], [address], 07/21/2024 13:18:43 07/22/1907/21/2024 non-s tress test No observ ation record ed. [email or web address], [place], [address], 07/21/2024 17:13:13 07/22/19 non-s tress test No observ ation record ed. [email or web address], [place], [address], 07/21/2024 17:14:37 07/23/19 25 07/21/2024 US, obste tric, bioph ysica l profi le + non-s tress test No observ ation record ed. [email or web address] [address], [place], [address], 07/22/2024 14:14:56 07/29/19 25 07/28/2024 US, obste tric, bioph ysica l profi le + non-s tress test No observ ation record ed. [email or web address], [place], [address], 07/28/2024 17:14:30 07/29/19 25 07/28/2024 US, obste tric, bioph ysica l profi le + non-s tress test No observ ation record ed. [email or web address] [address], [place], [address], 07/28/2024 14:14:02 07/29/19 25 07/28/2024 non-s tress test No observ ation record ed. [email or web address], [place], [address], 07/28/2024 13:43:56 07/29/19 non-s tress test No observ ation record ed. [email or web address], [place], [address], 07/28/2024 15:53:11 08/02/19 25 08/01/2024 non-s tress test No observ ation record ed. [place] [id number] [facility] [address], [place], [address], 08/04/2024 14:58:50 08/05/19 25 08/04/2024 US, obste tric, bioph ysica l profi le + non-s tress test No observ ation record ed. [email or web address] [facility] [address] [place], [address], 08/07/2024 14:26:32 08/05/19 25 08/04/2024 US, obste tric, follo w-up No observ ation record ed. [facility] [address] [facility], [place], [address], 08/06/2024 18:04:54 08/07/19 25 08/06/2024 non-s tress test No observ ation record ed. [place] [id number] [facility] [address], [place], [address], 08/10/2024 08:26:49 08/11/19 25 08/10/2024 non-s tress test No observ ation record ed. [email or web address], [place], [address], 08/10/2024 17:46:06 12/02/19 25 12/01/2024 elect tito lima am No observ ation record ed. [email or web address] [facility] [address], [place], [address], 12/01/2024 20:29:35 Result Notes None recorded. Problems Name Problem SNOMED Code Status Onset Date Resolution Date Notes Provider Name and Address Organization Details Recorded Time Cardiac arrhythm ia 566757569 Completed Metoprol ol in early pregnanc y, cardiolo gy f/u is pending EKG 01/2024 septal infarct check & monitor BP with appropri ate sized cuff check & record CBG when cardiac symptoms occur Divine Bean abelardo [facility] 5 18:13:22 Hyperten sive disorder 11761460 Completed BP logs at home per MFM , Cardiolo gist start pt 03/04 Labatelo l 100MG BID Schedule d antenata l testing MWC due to schedule except for 08/04/24 0900 US/BPP/N ST/Consu lt with [facility] Divine Bean abelardo [facility] 5 12:16:31 Hyperten sive disorder 10170778 Active BP logs at home per MF , Cardiolo gist start pt 03/04 Labatelo l 100MG BID Schedule d antenata l testing MWC due to schedule except for 08/04/24 0900 US/BPP/N ST/Consu lt with [facility] Divine Bean abelardo [facility] 5 12:16:31 Pregnanc y 65618304 Completed 202408/21/2024 Janet zhou [facility] 5 13:03:23 Pruritic disorder of skin Completed 2024 Ursodiol 300mg BID Bile acids 4 Rpt labs 06/19/24 bile acid 8 5 bile acid 6 Viri zhou [facility] 5 11:13:08 Past pregnanc y history of pre-ecla mpsia 9389244728 69786 Completed 2024 Viri zhou [facility] 5 11:08:26 Glucose toleranc e test outside referenc e range 765986172 Completed 2024 check blood sugars Viri zhou [facility] 5 11:08:47 Past pregnanc y history of pre-ecla mpsia 9918438952 33782 Active 2024 Viri Murry abelardo [facility] 5 11:08:26 Glucose toleranc e test outside referenc e range 456638187 Active 2024 check blood sugars Viri Murry abelardo [facility] 5 11:08:47 Migraine with aura 5237487 Completed 2024 Patel Bruce MD [address], [place], [address], [facility] 11:26:45 Problem Notes None recorded. Procedures Surgical History Date Name Laterality Status Provider Name and Address Organization Details Recorded Time 07/22/19 24 Control Implant Removal completed EVER Garcia [address], [place], [address], [facility] 07/22/2023 10:11:59 07/18/19 24 Date of Last Pap Smear completed Aylin Turpin [facility] 01/14/2024 11:25:43 02/11/19 22 [facility]/27/2024 11:09:35 02/11/19 21 [facility] 06/27/2024 11:10:13 02/11/19 12 [facility] 06/27/2024 11:10:28 Imaging Results None recorded. Procedure Notes None recorded. Medical Equipment None Reported. Allergies Allergen ID Allergen Name Allergen Category Reaction Reaction Severity Criticality Documentation Date Start Date Code Code System Note Provider Name and Address Organization Details Recorded Time 42388 Penicilli n Not available hives moderate Not available 07/18/2023 83545 RxNorm Asya Jones [facility], [facility] 4 10:16:14 Medications Name Sig Start [...] and Address Organization Details Last Updated DateTime 08/21/2024 157.48 cm 32.7 kg/m2 49856.03 g 129/81 mm[Hg] [facility] 08/21/2024 12:50:46 Date Recorded Body height Body mass index (BMI) Body weight Systolic And Diastolic Provider Name and Address Organization Details Last Updated DateTime 09/04/2024 157.48 cm 32.7 kg/m2 09480.03 g 117/67 mm[Hg] [facility] 09/04/2024 12:46:05 Date Recorded Body height Body mass index (BMI) Body weight Systolic And Diastolic Provider Name and Address Organization Details Last Updated DateTime 09/22/2024 157.48 cm 33.3 kg/m2 39475.81 g 122/76 mm[Hg] Jante Humphrey [facility] 09/22/2024 12:33:27 Date Recorded Body height Body mass index (BMI) Body weight Systolic And Diastolic Provider Name and Address Organization Details Last Updated DateTime 12/01/2024 157.48 cm 34 kg/m2 08362.18 g 135/79 mm[Hg] Aylin Papi [facility] 12/01/2024 10:03:05 Social History Question Answer Notes LastModified by Organizat ion Details LastModified Time Tobacco Smoking Status Never Smoker Asya Jones abelardo, [facility] 07/18/2023 10:18:55 Do You Have An Advance Directive? No Information n ot available 01/14/2024 If You Are , What Was Your Level Of Alcohol Consumption Prior To ? Occasional [email or web address] Information not available 06/27/2024 How Many Years [...] Or The Highest Degree You Have Received? [id number] Information not available 07/18/2023 Are There Any [...] Have Difficulty Walking Or Climbing Stairs? No [email or web address] Information not available 06/27/2024 Sex: Unknown Functional Status Question Answer Note LastModified by Organizat ion Details LastModified Time Do you use any illicit or recreational drugs? No Information not available 07/18/2023 What is your level of alcohol consumption? None [email or web address] Information not available 06/27/2024 Are you able to walk independently without assistance or assistive devices? [email or web address] Information not available 07/18/2023 Are you able to care for yourself independently? 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 No [email or web address] Information not available 06/27/2024 What is your exercise level? Moderate Information not available 07/18/2023 Mental Status Question Answer Note LastModified by Organization D etails LastModified Time Do you feel stressed (tense, restless, nervous, or anxious, or unable to sleep at night)? [id number] [email or web address] Information not available 07/18/2023 Family History Relationship Description Onset Age of this Age Resolved Age Notes LastModified by Organization Details LastModified Time Unspecified Relation Family history unknown [email or web address] Not available 11/12 09:54:58 Mother Malignant neoplasm of ovary [email or web address] Not available 2023 11:12:33 Sister Malignant neoplasm of ovary [email or web address] Not available 2023 11:12:39 Medical History Condition Response Allergies (Food, seasonal, environmental ) N Other N Breast Cancer N Drug/Latex Allergies/Reactions Y Blood Transfusion N Lung Disease N Dermatologic Disorders N Defects or Inherited Disease N Breast Problem N Gestational Diabetes N Hematologic disorders N Anesthesia Complications N History of STI N Deep Vein Thrombosis N Polycystic ovary syndrome N Anxiety Disorder N Autoimmune disease N Arthritis N Polyps N Infertility N History of abnormal pap N Acid Reflux (GERD) Y Cancer N Varicosities N Stroke N Neurologic/Epilepsy N Endometriosis N High Cholesterol N Fibromyalgia N Headaches N Kidney Disease N Heart Problems N [...] ICD10 Code Diagnosis IMO Codes Diagnosis Note [id number] [address] [address] 07/18/2023 10:11:30 07/18/2023 11:17:21 Gynecologic examination 56398659 Z01.419 WWEpap updateddec lined STI screenrout ine labs/PCP It is strongly advised to have an annual flu shot and up can obtain at most pharmacies . If you have not had a TDap shot in the last 10 years you should obtain one as well. Discussed with patient & provided with informatio n regarding Gardisil vaccine to prevent the 4 strains for HPV that cause cervical cancer if they qualify. Encourage safe sexual practices, to use condoms and limit partners if not already in a monogamous relationsh ip. Do monthly self breast exams. BRCA testing is now available for patients with strong genetic history of female cancer. If interested contact the office. Engage in regular exercise. Avoid tobacco and illicit drugs. This lifestyle behavior pattern will lead to less health conditions and longer life span. If BMI greater than 25 dietary consult advised. Patient received above instructio ns, and questions have been answered. If you have any questions please call or respond to this email. Patient was made aware of the patient portal and may obtain a paper copy of today's plan if desired. Contracept ion care management 968412918 Z30.9 Desires nexplanon removalsch eduled to RTC for procedure - r/b discusseda lternative BC options discussed - declined Family his tory of malignant neoplasm of ovary 882449166 Z80.41 recommende d genetic testing d/t family historyinv itae genetic testing handout given to ptcan order testing at any time if she desires [id number] [address] 07/22/2023 09:28:38 07/22/2023 10:18:55 Screening procedure 54036884 Z13.9 Removal of subcutaneous contraceptive 303181898 Z30.46 Nexplanon removed (see procedure note)preca utions discussedB C - declined, encouraged daily PNV Family his tory of malignant neoplasm of ovary 556410799 Z80.41 Genetic testing discussedo rder given per requestque stions answered [id number] Patel Bruce MD Trail [address] [address] 01/14/2024 10:34:40 01/14/2024 11:22:38 Uterine size for dates discrepancy 616169046 O26.841 Z3A.01 [id number] Ptael Bruce MD [address],[place] [address] 01/14/2024 10:35:20 01/14/2024 11:52:20 Nausea and vomiting 93177027 R11.2 Amenorrhea 42508453 N91. 2 this patient is a 28-year-ol d female who presents for amenorrhea . She is a positive test. Ultrasound revealed a 1st trimester gestation. Patient has no complaints . We talked about early care. Talked about genetic screening. We talked about her ultrasound results. We talked about the 12 week ultrasound that has genetic screening components . She was given recommenda tions on exercise, diet, over-the-c ounter medication s. We reviewed her obstetric history. We reviewed her medical history. We reviewed her social history. She will begin routine care at her next visit. [id number] Patel Bruce MD [address],[place] [address] 01/24/2024 10:50:29 01/24/2024 16:50:47 Dizziness 696141645 R42 23-year-ol d multiparou s female who presents for dizziness. She had an episode of dizziness that was transient and short. Patient has a complicate d cardiovasc ular history. She is treated with metoprolol . We discussed immediate consultati on with Maternal-F etal Medicine. She recently had echocardio gram. Her dizziness is an isolated episode that resolved quickly and has not been a problem since. She will follow up quickly with maternal medicine. [id number] Patel Bruce MD [address],[facility] [address] 02/25/2024 10:59:36 02/25/2024 12:04:44 Nausea and vomiting 74181346 R11.2 Routine an tenatal care 840840745 Z34.90 Gestation period, 12 weeks 38900221 Z3A.12 [id number] Patel Bruce MD [address],[place] [address] 04/01/2024 11:24:51 04/01/2024 12:17:45 Routine care 364144522 Z34.90 [id number] MD Kusum Howard [address],[place] [address] 05/07/2024 12:13:37 05/11/2024 00:29:22 Routine care 447088805 Z34.90 [id number] MD Kusum Howard [address],[place] [address] 05/19/2024 11:47:56 05/19/2024 12:44:12 Routine care 924384450 Z34.90 [id number] MD Kusum Howard [address],[place] [address] 06/04/2024 10:55:39 06/04/2024 12:25:28 Cholestasis of 101883098 O26.643 17158568 care status 24 5201224 Z34.83 32848281 [id number] MD Kusum Howard [address],[place] [address] 06/18/2024 09:36:05 06/18/2024 10:09:18 care status 198402250 Z34.83 38072914 [id number] MD Kusum Howard [address],[place] [address] 06/27/2024 10:48:49 06/27/2024 11:36:35 Migraine with aura 1172951 G43.521 9861817 care status 24 8907016 Z34.83 09741303 [id number] MD Kusum Howard [address] [place] [address] 07/02/2024 09:55:46 07/02/2024 10:54:28 False labor before 37 completed weeks of gestation 2814347119 4986114 O47.03 96129167 [id number] MD Kusum Howard [address],[place] [address] 07/14/2024 11:37:30 07/14/2024 12:25:25 Essential hypertension complicating AND/OR reason for care during 71639809 O10.013 O99.213 Z3A.33 4879008 [id number] Patel Bruce MD Trail [address],[place] [address] 07/14/2024 11:37:57 07/16/2024 09:32:07 Past history of pre-eclampsia 6882871638 23000 Z87.59 985880 [id number] Patel Bruce MD [address],[place] [address] 07/14/2024 11:39:17 07/14/2024 12:49:33 Cholestasis of 654704838 O26.643 67884329 [id number] Patel Bruce MD Trail [address],[place] [address] 07/21/2024 11:32:48 07/21/2024 17:16:08 Chronic hypertension complicating AND/OR reason for care during 26105683 O10.913 95188729 [id number] BARRETT SANCHEZ MD Trail [address],[place] [address] 07/21/2024 11:33:16 07/21/2024 13:03:24 Chronic hypertension complicating AND/OR reason for care during 38108139 O10.919 Z87.59 Z3A.34 13698004 [id number] BARRETT SANCHEZ MD Trail [address],[place] [address] 07/21/2024 11:33:26 07/21/2024 15:41:45 Chronic hypertension complicating AND/OR reason for care during 58458081 O10.919 75682687 - BP wnl- labetalol 100 bid- asymptomat ic Past pregn ayanna history of pre-eclampsia 8226358105 51796 O09.299 755210 - asymptomat ic- continue to monitor BP closely Gestation period, 34 weeks 47728388 Z3A.34 3476836 - continue PNV [id number] BARRETT SANCHEZ MD [address],[place] [address] 07/28/2024 10:35:28 07/28/2024 11:07:42 Maternal hypertension 619513405 O16.3 O09.299 Z3A.35 3550131 [id number] BARRETT SANCHEZ MD [address],[place] [address] 07/28/2024 10:35:52 07/28/2024 13:49:27 Chronic hypertension complicating AND/OR reason for care during 11400268 O10.919 78214731 [id number] BARRETT SANCHEZ MD [address],[place] [address] 07/28/2024 10:36:09 07/28/2024 12:20:12 New daily persistent headache 4863935904 17630 G44.52 944597 Pruritic d isorder of skin 1183491629 L29.9 81432 - bile acids normal Hypertensive disorder 38 824233 I10 - normotensi ve Migraine with aura 50184 06 G43.214 7346074 Gestation period, 35 weeks 60465543 Z3A.35 0502034 - continue PNV [id number] Patel Bruce MD [address],[place] [address] 08/06/2024 10:13:42 08/08/2024 23:41:22 [id number] Patel Bruce MD [address],[place] [address] 08/06/2024 10:15:00 08/10/2024 22:15:38 Maternal obesity complicating , childbirth and the puerperium, antepartum 3769420065 07 O99.210 2482525721 [id number] MD Kusum Howard [address],[place] [address] 08/06/2024 14:21:33 08/06/2024 15:52:20 care status 610288053 Z34.83 41033259 [id number] MD Kusum Howard [address],[place] [address] 08/10/2024 08:53:33 08/11/2024 09:31:06 [id number] Rocio Fuentes CNM [address],[place] [address] 08/21/2024 12:35:06 08/21/2024 13:59:17 Generalized abdominal pain 829746388 R10.84 358447 ED precaution s if worsens or if fever/naus ea go in for evaluatio, will check bcb today Past pregn ayanna history of gestational hypertension 989821619 Z87.59 44195481 bp normotensi ve f/u at pp visit in 2 weeks Disturbance in mood 4807 9002 R45.86 [id number] will plan referral to anne marie FUNKN for pp plan [id number] BARRETT SANCHEZ MD [address],[place] [address] 09/04/2024 12:24:48 09/04/2024 13:33:13 Urinary symptoms 067105572 R39.9 24327 Prolapse o f female genital organs 76942037 N81.9 84208979 - mild cystocele and rectocele, normal in healing- discussed home pelvic floor exercises- recommend stool softener- if still bothersome at PP visit, will send pelvic floor PT referral Past pregn ayanna history of gestational hypertension 152796979 Z87.59 13719450 - asymptomat ic- BP Normotensi ve today Mood disorder 86672702 F 39 51737 - baby blues, no SI/HI- EPDS 3-referral sent to Lili Waite, psychological assistant- return precaution s discussed [id number] BARRETT SANCHEZ MD [address],[facility] [address] 09/22/2024 12:26:25 09/22/2024 12:57:58 state 63739908 Z39.2 778676 S/ 6 weeks ago here today for a visit.1. Patient recovering well2. Plans to continue breast feeding3. Interested in condoms for contracept ion at this time. Risks, benefits, and alternativ es reviewed with the patient4. Patient instructed to follow up in 6 months for well woman exam unless need arises prior Past pregn ayanna history of gestational hypertension 035433206 Z87.59 11471160 - asymptomat ic- BP Normotensi ve today [id number] Patel Bruce MD Trail [address] [address] 12/01/2024 09:54:53 12/01/2024 10:40:54 Dyspnea 415196083 R06.02 42304 Inflammato ry disorder of breast 269363904 N61.0 62504 Malaise and fatigue 2717 08870 R53.81 R53.83 92224 This patient is a 24-year-ol d female [...] by Organization Details LastModified Time None Recorded Advance Directives Directive N: Payers Insurance Date Sequence Insurance Name Policy Number Policy Gray Covered Member ID Gray Member ID Guarantor Name 11/30/2024 1 [facility] (MEDICAID HMO) [id number] Raya Pritchard [id number] Raya Pritchard 12/18/2023 1 *SELF PAY* Juan Pablo Pritchard Notes Date Note Type Note Provider Name and Address Organization Details Recorded Time 5 text/html ROS as noted in the HPI pt presents today for blood pressure check, bp normotensivestarted crying when asked how things are going, denies any depression or anxiety but gets random overwhelming feelings and begins to cry, happeneing frequently and can disrupt daily activitiesalso c/o mid right abd pain stabbing more frequent last 3 days whether doing an activity or just laying down, no fever nausea or vomiting Rocio Fuentes CNM [address], [place], [address], [facility] 08/21/2024 13:57:59 5 text/html ROS as noted in the HPI Patient presents for early check up. She reports a new bulging sensation at the vaginal opening. No incontinence, incomplete emptying. Does report constipation. Having some baby blues, denies SI/HI. Feeling this is getting better. Has referral for psych. EPDS 3 today. BARRETT SANCHEZ MD [address], [place], [address], [facility] 09/04/2024 13:18:48 5 text/html VisitReported by Patient S/P on 08/10 at 37 weeks gestation for chronic HTN. was otherwise uncomplicated. Complications with delivery: none. Patient denies any specific problems since delivery. Patient overall feeling well. Patient is breast feeding without problems. Has not had a period yet. No bleeding. Bowel and bladder function are normal. Pap due 07/2026. Seeing Lili Waite for PPD/PPA. Is coping with parenting well. Doing well on buspar and lexapro. Patient has not been sexually active since delivery. Patient is not interested in contraception at this time. Janet zhou, [facility] 09/22/2024 14:16:01 5 text/html This patient is a 24-year-old female [...] her care in total. Patel Bruce MD [address], [place], [address], [place] [facility] 12/01/2024 10:38:32 OBGyn Episode Ob Episode Information Episode Created Date Number of Fetuses Patient Bloodtype Patient rh Status Prepregnancy Weight lbs Domestic Partner Domestic Partner Phone Father Name 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 Status 04/01/19 25 1 CLOSED Fetus Data First Name Last Name Admitted to NICU Weight (g) Sex Living Outcome Pediatric Complications Fetus ID Race Codes Race Delivery Type , Spontane ous [id number] Asaf Calculation Initial Asaf Date Initial Exam Date Initial Exam Provider Initial Ultrasound Date Last Menstrual Period Date Ultra Sound Weeks Gestation 0 Eighteen To Twenty Week Asaf Update Ultra Sound Date Fundal Height At Umbil Quickening Date Ultra Sound Latest Weeks Gestation Final Asaf Confirmed By Final Asaf Confirmed Date Final Asaf Date Ultra Sound Latest Days Gestation 0 0 Menstrual History Last Menstrual Date Menses Monthly On Bcp Conception Prior Menses Frequency Hcg Plus Date Menarche Onset Age Delivery Information Delivery Date Delivery Type Labor Anesthesia Weeks Gestation Incision Type Labor Labor Length Hrs Delivered By Post Complications Tubal Sterilization Discharge Date Comments 0 Discharge Information Feeding Method Contraceptive Method Maternal HG B and HCT Levels Ob Episode Information Episode Created Date Number of Fetuses Patient Bloodtype Patient rh Status Prepregnancy Weight lbs Domestic Partner Domestic Partner Phone Father Name 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 Status 02/24/19 25 1 A Positive 193 Korey CLOSED Fetus Data First Name Last Name Admitted to NICU Weight (g) Sex Living Outcome Pediatric Complications Fetus ID Race Codes Race Delivery Type Ashley false 3090.09 55 F Full Term [id number] Vaginal Delivery Problems Problem Notes [facility] recommends business writer & a nesthesia consults. 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 visit 04/15/24 0945 05/13/24 9:45 US & NST 06/17/24 1030 US and consult 08/04 US/NST/Consult PT referral faxed 05/28 [facility] Physical Therapy pubic/pelvic pain 2nd trimester scheduled 06/11/24 Problem Name Start Date End Date Resolution Snomed Code Not e Migraine with aura 06/27/2024 6275333 Pruritic disorder of skin 05/28/2024 1757022062 Ursodiol 300mg BID Bile acids 4 Rpt labs06/19/24 bile acid 8 06/26/2024 bile acid 6 Glucose tolerance test outside reference range 06/27/2024 664143663 check blood sugars Cardiac arrhythmia 307985115 M etoprolol in early , cardiology f/u is pendingEKG 01/2024 septal infarct check & monitor BP with appropriate sized cuffcheck & record CBG when cardiac symptoms occur Past history of pre-eclampsia 06/27/2024 [id number] Hypertensive disorder [id number] BP logs at home per MFM , House Principal start pt 03/04 Labatelol 100MG BIDScheduled testing MWC due to schedule except for 08/04/24 0900 US/BPP/NST/Consult with [facility] Asaf Calculation Initial Asaf Date Initial Exam Date Initial Exam Provider Initial Ultrasound Date Last Menstrual Period Date Ultra Sound Weeks Gestation 02/25/2024 01/14/2024 11/15/2023 7 Eighteen To Twenty Week Asaf Update Ultra Sound Date Fundal Height At Umbil Quickening Date Ultra Sound Latest Weeks Gestation Final Asaf Confirmed By Final Asaf Confirmed Date Final Asaf Date Ultra Sound Latest Days Gestation 0 [email or web address] 02/25/2024 08/31/19 25 0 Pre- Flowsheet Flowsheet Date 02/25/2024 Johnson Score Blood Edema Fundus Height Fundus Units Glucose Ketones Leukocytes Nitrite Labor Signs Protein Cervic Dilation Cervic Effacement Cervic Station Type Weight in lbs Pre/Post Dialysis Refused Weight 181.522228782793 BP Diastolic BP Location Tested BP Systolic BP Type 84 L arm 130 sitting Fetus Heart Rate Present Fetus Movement A No Comments this patient is a 24-year-ol d multiparous female at 12 weeks' gestation who presents for initial care. She has a history of term vaginal births. Her medical, surgical, obstetric history is unremarkable. She is vaccinated. She was given precautions recommendations for . We talked about vaccines in . Talked about care in detail. She is having genetic testing. She had a normal 12 week ultrasound. To begin routine care. Flowsheet Date 04/01/2024 Johnson Score Blood Edema Fundus Height Fundus Units Glucose Ketones Leukocytes Nitrite Labor Signs Protein Cervic Dilation Cervic Effacement Cervic Station Type Weight in lbs Pre/Post Dialysis Refused 184.346050751987 BP Diastolic BP Location Tested BP Systolic BP Type 74 L arm 134 sitting Fetus Heart Rate Present A 145 Present Fetus Movement A No Comments just completed 2 weeks of he art monitoring, taking baby aspirin, good blood pressures at home, anatomy in 2 weeks with MFM, checking blood sugars, Flowsheet Date 05/07/2024 Johnson Score Blood Edema Fundus Height Fundus Units Glucose Ketones Leukocytes Nitrite Labor Signs Protein Cervic Dilation Cervic Effacement Cervic Station Type Weight in lbs Pre/Post Dialysis Refused Weight 186.931739823650 BP Diastolic BP Location Tested BP Systolic BP Type 79 L arm 129 sitting Fetus Heart Rate Present A 138 Present Fetus Movement A Yes Comments no complaints, no problems, routine care, no contractions, no vaginal bleeding, no loss of fluid, no cramping Flowsheet Date 05/19/2024 Johnson Score Blood Edema Fundus Height Fundus Units Glucose Ketones Leukocytes Nitrite Labor Signs Protein Cervic Dilation Cervic Effacement Cervic Station Type Weight in lbs Pre/Post Dialysis Refused 187.364995683150 BP Diastolic BP Location Tested BP Systolic BP Type 76 L arm 140 sitting Fetus Heart Rate Present A 146 Present Fetus Movement A Yes Comments a seeing MFM regularly. She is checking blood sugars. lot of patient contact here, she has cardiology working with her. She is Having regular visits here. Her blood pressure is well controlled. She is monitoring at home Flowsheet Date 06/04/2024 Johnson Score Blood Edema Fundus Height Fundus Units Glucose Ketones Leukocytes Nitrite Labor Signs Protein Cervic Dilation Cervic Effacement Cervic Station Type Weight in lbs Pre/Post Dialysis Refused Weight 188.802618158699 BP Diastolic BP Location Tested BP Systolic BP Type 82 L arm 135 sitting Fetus Heart Rate Present A 142 Present Fetus Movement A Yes Comments Diabetes screening today, re peat bile acids today, continued pruritus of the hands and feet. Stable blood pressures. Flowsheet Date 06/18/2024 Johnson Score Blood Edema Fundus Height Fundus Units Glucose Ketones Leukocytes Nitrite Labor Signs Protein Cervic Dilation Cervic Effacement Cervic Station Type Weight in lbs Pre/Post Dialysis Refused Weight 189.513055383813 BP Diastolic BP Location Tested BP Systolic BP Type 79 L arm 124 sitting Fetus Heart Rate Present A 135 Present Fetus Movement A Yes Comments touched on all her issues, b lood sugars are under control, blood pressure well controlled, saw MFM yesterday, being treated for elevated bile acids and pruritus With ursodiol. No evidence of recent arrhythmia episodes. Flowsheet Date 06/27/2024 Johnson Score Blood Edema Fundus Height Fundus Units Glucose Ketones Leukocytes Nitrite Labor Signs Protein Cervic Dilation Cervic Effacement Cervic Station neg trace Type Weight in lbs Pre/Post Dialysis Refused Weight 191.094399156955 BP Diastolic BP Location Tested BP Systolic BP Type 73 125 Fetus Heart Rate Present Fetus Movement A Yes Comments Patient is having cramping, swelling and nausea. Patient is supposed to be check blood sugars because of elevated 1 hour and forgot blood sugar log. Patient also had bloodwork on 06/26/2024 for bile aid -6 06/19/2024 bile acid 8. Patient is reporting symptoms of migraine with aura. We will be treated with Fioricet. Given precautions on combined hormonal control pills. Flowsheet Date 07/02/2024 Johnson Score Blood Edema Fundus Height Fundus Units Glucose Ketones Leukocytes Nitrite Labor Signs Protein Cervic Dilation Cervic Effacement Cervic Station Type Weight in lbs Pre/Post Dialysis Refused Weight 192.208278089820 BP Diastolic BP Location Tested BP Systolic BP Type 69 L arm 130 sitting Fetus Heart Rate Present A 144 Present Fetus Movement A Yes Comments severely painful contraction s at night. It is keeping her week. It is very painful. It affects her quality of life and activities of daily living. She was prescribed 30 mg of Procardia. Procardia XL. We will observe blood pressures. History of gestational hypertension. On labetalol for tachycardia. Flowsheet Date 07/14/2024 Johnson Score Blood Edema Fundus Height Fundus Units Glucose Ketones Leukocytes Nitrite Labor Signs Protein Cervic Dilation Cervic Effacement Cervic Station Type Weight in lbs Pre/Post Dialysis Refused BP Diastolic BP Location Tested BP Systolic BP Type Fetus Heart Rate Present Fetus Movement Comments Flowsheet Date 07/14/2024 Johnson Score Blood Edema Fundus Height Fundus Units Glucose Ketones Leukocytes Nitrite Labor Signs Protein Cervic Dilation Cervic Effacement Cervic Station Type Weight in lbs Pre/Post Dialysis Refused 190.326720629292 BP Diastolic BP Location Tested BP Systolic BP Type 85 L arm 129 sitting Fetus Heart Rate Present Fetus Movement A Yes Comments Flowsheet Date 07/14/2024 Johnson Score Blood Edema Fundus Height Fundus Units Glucose Ketones Leukocytes Nitrite Labor Signs Protein Cervic Dilation Cervic Effacement Cervic Station Type Weight in lbs Pre/Post Dialysis Refused Weight 190.255851739012 BP Diastolic BP Location Tested BP Systolic BP Type 85 L arm 129 sitting Fetus Heart Rate Present A 145 Fetus Movement A Yes Comments Reassuring heart tones , persistent pruritus of the hands and feet. Otherwise, no complaints, no problems, routine care, no contractions, no vaginal bleeding, no loss of fluid, no cramping Flowsheet Date 07/21/2024 Johnson Score Blood Edema Fundus Height Fundus Units Glucose Ketones Leukocytes Nitrite Labor Signs Protein Cervic Dilation Cervic Effacement Cervic Station Type Weight in lbs Pre/Post Dialysis Refused Weight 193.919586406866 BP Diastolic BP Location Tested BP Systolic BP Type 74 L arm 129 sitting Fetus Heart Rate Present Fetus Movement Comments Flowsheet Date 07/21/2024 Johnson Score Blood Edema Fundus Height Fundus Units Glucose Ketones Leukocytes Nitrite Labor Signs Protein Cervic Dilation Cervic Effacement Cervic Station Type Weight in lbs Pre/Post Dialysis Refused BP Diastolic BP Location Tested BP Systolic BP Type Fetus Heart Rate Present Fetus Movement Comments Flowsheet Date 07/21/2024 Johnson Score Blood Edema Fundus Height Fundus Units Glucose Ketones Leukocytes Nitrite Labor Signs Protein Cervic Dilation Cervic Effacement Cervic Station Type Weight in lbs Pre/Post Dialysis Refused Weight 193.657626863338 BP Diastolic BP Location Tested BP Systolic BP Type 74 L arm 129 sitting Fetus Heart Rate Present A Present Fetus Movement A Yes Comments Good movement. No cram ping or bleeding. Some right foot tingling. Reports RUQ pain, appears to be related to position. Denies headaches, vision changes, chest pain, dyspnea, or epigastric pain. BPP 10/10. Repeat bile acids ordered today. RTC 1 week. Flowsheet Date 07/28/2024 Johnson Score Blood Edema Fundus Height Fundus Units Glucose Ketones Leukocytes Nitrite Labor Signs Protein Cervic Dilation Cervic Effacement Cervic Station Type Weight in lbs Pre/Post Dialysis Refused BP Diastolic BP Location Tested BP Systolic BP Type Fetus Heart Rate Present Fetus Movement Comments Flowsheet Date 07/28/2024 Johnson Score Blood Edema Fundus Height Fundus Units Glucose Ketones Leukocytes Nitrite Labor Signs Protein Cervic Dilation Cervic Effacement Cervic Station Type Weight in lbs Pre/Post Dialysis Refused BP Diastolic BP Location Tested BP Systolic BP Type Fetus Heart Rate Present Fetus Movement Comments Flowsheet Date 07/28/2024 Johnson Score Blood Edema Fundus Height Fundus Units Glucose Ketones Leukocytes Nitrite Labor Signs Protein Cervic Dilation Cervic Effacement Cervic Station Type Weight in lbs Pre/Post Dialysis Refused Weight 196.964341565920 BP Diastolic BP Location Tested BP Systolic BP Type 78 L arm 135 sitting Fetus Heart Rate Present A 125 Fetus Movement A Yes Comments Doing well, good movem ent. Has a headache, has tried hydration, caffeine, tylenol, excedrin, and sleeping. Will order labs to r/o preeclampsia and try maxalt, rx sent. BPP 10/10, vertex. Discussed GBS collection next visit. Needs to schedule induction. RTC 1 week. Flowsheet Date 08/06/2024 Johnson Score Blood Edema Fundus Height Fundus Units Glucose Ketones Leukocytes Nitrite Labor Signs Protein Cervic Dilation Cervic Effacement Cervic Station Type Weight in lbs Pre/Post Dialysis Refused BP Diastolic BP Location Tested BP Systolic BP Type Fetus Heart Rate Present Fetus Movement Comments Flowsheet Date 08/06/2024 Johnson Score Blood Edema Fundus Height Fundus Units Glucose Ketones Leukocytes Nitrite Labor Signs Protein Cervic Dilation Cervic Effacement Cervic Station Type Weight in lbs Pre/Post Dialysis Refused BP Diastolic BP Location Tested BP Systolic BP Type Fetus Heart Rate Present Fetus Movement Comments Flowsheet Date 08/06/2024 Johnson Score Blood Edema Fundus Height Fundus Units Glucose Ketones Leukocytes Nitrite Labor Signs Protein Cervic Dilation Cervic Effacement Cervic Station 3cm 80% -2 Type Weight in lbs Pre/Post Dialysis Refused Weight 198.849190600697 BP Diastolic BP Location Tested BP Systolic BP Type 71 L arm 138 sitting Fetus Heart Rate Present A 144 Fetus Movement A Yes Comments no complaints, no problems, routine care, no contractions, no vaginal bleeding, no loss of fluid, no cramping Flowsheet Date 08/10/2024 Johnson Score Blood Edema Fundus Height Fundus Units Glucose Ketones Leukocytes Nitrite Labor Signs Protein Cervic Dilation Cervic Effacement Cervic Station Type Weight in lbs Pre/Post Dialysis Refused BP Diastolic BP Location Tested BP Systolic BP Type Fetus Heart Rate Present Fetus Movement Comments Flowsheet Date 08/21/2024 Johnson Score Blood Edema Fundus Height Fundus Units Glucose Ketones Leukocytes Nitrite Labor Signs Protein Cervic Dilation Cervic Effacement Cervic Station Type Weight in lbs Pre/Post Dialysis Refused Weight 179.611765778177 BP Diastolic BP Location Tested BP Systolic BP Type 81 L arm 129 sitting Fetus Heart Rate Present Fetus Movement Comments Menstrual History Last Menstrual Date Menses Monthly On Bcp Conception Prior Menses Frequency Hcg Plus Date Menarche Onset Age 1011/15/2023 false Delivery Information Delivery Date Delivery Type Labor Anesthesia Weeks Gestation Incision Type Labor Labor Length Hrs Delivered By Post Complications Tubal Sterilization Discharge Date Comments 5 Induce d 37.1 false Discharge Information Feeding Method Contraceptive Method Maternal HG B and HCT Levels Ob Episode Information Episode Created Date Number of Fetuses Patient Bloodtype Patient rh Status Prepregnancy Weight lbs Domestic Partner Domestic Partner Phone Father Name 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 Status 07/18/19 24 1 CLOSED Fetus Data First Name Last Name Admitted to NICU Weight (g) Sex Living Outcome Pediatric Complications Fetus ID Race Codes Race Delivery Type 3118.44 5 F Full Term [id number] Vaginal Delivery Asaf Calculation Initial Asaf Date Initial Exam Date Initial Exam Provider Initial Ultrasound Date Last Menstrual Period Date Ultra Sound Weeks Gestation 0 Eighteen To Twenty Week Asaf Update Ultra Sound Date Fundal Height At Umbil Quickening Date Ultra Sound Latest Weeks Gestation Final Asaf Confirmed By Final Asaf Confirmed Date Final Asaf Date Ultra Sound Latest Days Gestation 0 0 Menstrual History Last Menstrual Date Menses Monthly On Bcp Conception Prior Menses Frequency Hcg Plus Date Menarche Onset Age Delivery Information Delivery Date Delivery Type Labor Anesthesia Weeks Gestation Incision Type Labor Labor Length Hrs Delivered By Post Complications Tubal Sterilization Discharge Date Comments 1 39 Discharge Information Feeding Method Contraceptive Method Maternal HG B and HCT Levels
== END 2024-12-02 10:22 | disposition home or self-care (01) ==
LOC: ANHFOHIMG 10:22
PROVIDERS: Visit Provider Obstetrics & Gynecology
DX: N64.4 Mastodynia (principal)
CPT/HCPCS: 76641